=== PATIENT | male | born 1940 | race Caucasian/White ===

== ENCOUNTER 2016-09-07 08:01 | Outpatient (CLI) | payer MEDICARE, OTHER ==
[2016-09-07 08:56] LABS: Anion Gap 12 mmol/L (10-20); BUN (Urea Nitrogen) 13 mg/dL (8.4-25.7); Calc. Creatinine Clearance 0 mL/min (70-130); Carbon Dioxide 27 mmol/L (23-31); Chloride 107 mmol/L (98-107); Estimated GFR-MDRD 68
[2016-09-07 08:57] LABS: ALT (SGPT) 17 U/L (0-55); AST (SGOT) 19 U/L (5-34); Alkaline Phosphatase 49 U/L (40-150); Bilirubin, Total 0.4 mg/dL (0.2-1.2); Calcium 8.9 mg/dL (7.8-10.44); Globulin 2.4 g/dL (2.4-3.5); LDL Cholesterol, Calculated 69 mg/dL; Protein, Total 6.3 g/dL (5.8-8.1)
== END 2016-09-07 08:02 | disposition home or self-care (01) ==
LOC: BURLAB 08:01
PROVIDERS: ATTEND Internal Medicine Cardiovascular Disease
DX: E78.00 Pure hypercholesterolemia, unspecified (principal)
CPT/HCPCS: 36415; 80053; 80061

== ENCOUNTER 2016-10-23 09:51 | Emergency (ER) | payer MEDICARE, OTHER ==
[2016-10-23 10:12] LABS: #Basophils 0.1 thou/uL (0.0-0.2); #Lymphocytes 4.9 thou/uL (1.20-3.40); #Monocytes 1.2 thou/uL (0.11-0.59); #Neutrophils 7.5 thou/uL (1.40-6.50); %Basophils 0.6 % (0.0-1.0); %Eosinophils 0.1 % (0.0-10.0); %Lymphocytes 35.8 % (21.0-51.0); %Neutrophils 54.6 % (42.0-75.0); Hemoglobin 14.8 g/dL (14.0-18.0); Mean Corpuscular HGB CONC 33.4 g/dL (32.0-36.0); Mean Corpuscular Hemoglobin 30.8 pg (27.0-31.0); Mean Corpuscular Volume 92.1 fl (80.0-94.0); Mean Platelet Volume 9.5 fL (7.4-10.4); Platelet Count 278 thou/uL (130-400); RBC Distribution Width 13.2 % (11.5-14.5); Red Blood Cell (RBC) Count 4.81 mill/uL (4.70-6.10); White Blood Cell (WBC) Count 13.7 thou/uL (4.8-10.8)
[2016-10-23 10:25] LABS: ALT (SGPT) 26 U/L (0-55); AST (SGOT) 24 U/L (5-34); Albumin 4.1 g/dL (3.4-4.8); Alkaline Phosphatase 43 U/L (40-150); Anion Gap 11 mmol/L (10-20); BUN (Urea Nitrogen) 18 mg/dL (8.4-25.7); Bilirubin, Total 0.5 mg/dL (0.2-1.2); Calc. Creatinine Clearance 0 mL/min (70-130); Carbon Dioxide 28 mmol/L (23-31); Chloride 104 mmol/L (98-107); Estimated GFR-MDRD 72; Globulin 2.5 g/dL (2.4-3.5); Glucose 89 mg/dL (83-110); Potassium 3.4 mmol/L (3.5-5.1); Protein, Total 6.6 g/dL (5.8-8.1); Sodium 140 mmol/L (136-145)
[2016-10-23 10:28] LABS: CKMB 2.3 ng/mL (0-6.6); Troponin I 0.017 ng/mL (< 0.028)
--- NOTE | 2016-10-23 20:09 | RAD ---
PORTABLE CHEST 10/23/16 An AP portable film at 1004 is compared with the 11/09/15 study. Mild cardiomegaly is about the same. There are no congestive findings or pleural effusions. The lung s seem clear. An AICD remains in place. IMPRESSION: No acute thoracic finding. POS: HOME
== END 2016-10-23 11:48 | disposition short-term general hospital (02) ==
LOC: BURERS 09:51
DX: R07.2 Precordial pain (principal); I48.91 Unspecified atrial fibrillation; E78.5 Hyperlipidemia, unspecified; I10 Essential (primary) hypertension; F32.9 Major depressive disorder, single episode, unspecified; Z87.891 Personal history of nicotine dependence
CPT/HCPCS: 71010; 80053; 82553; 83880; 84484; 85025; 93005

== ENCOUNTER 2017-03-04 07:52 | Outpatient (CLI) | payer MEDICARE, OTHER ==
[2017-03-04 09:01] LABS: ALT (SGPT) 19 U/L (8-55); AST (SGOT) 21 U/L (5-34); Albumin 4.1 g/dL (3.4-4.8); Alkaline Phosphatase 57 U/L (40-150); Anion Gap 14 mmol/L (10-20); BUN (Urea Nitrogen) 12 mg/dL (8.4-25.7); Bilirubin, Total 0.5 mg/dL (0.2-1.2); Calc. Creatinine Clearance 0 mL/min (70-130); Calcium 9.5 mg/dL (7.8-10.44); Carbon Dioxide 29 mmol/L (23-31); Chloride 105 mmol/L (98-107); Cholesterol 136 mg/dl (< 200 Desired); Estimated GFR-MDRD 68; Globulin 2.5 g/dL (2.4-3.5); Glucose 104 mg/dL (83-110); HDL Cholesterol 46 mg/dL (>60 Neg Risk); LDL Cholesterol, Calculated 68 mg/dL; Protein, Total 6.6 g/dL (5.8-8.1); Sodium 144 mmol/L (136-145); Triglycerides 110 mg/dL (Less than 150)
== END 2017-03-04 07:53 | disposition home or self-care (01) ==
LOC: BURLAB 07:52
PROVIDERS: ATTEND Internal Medicine Cardiovascular Disease
DX: E78.00 Pure hypercholesterolemia, unspecified (principal)
CPT/HCPCS: 36415; 80053; 80061

== ENCOUNTER 2017-08-18 09:05 | Emergency (ER) | payer MEDICARE, OTHER ==
[2017-08-18] MEDS ORDERED: AMOXicillin 250 MG CAP ONE (10:09)
--- NOTE | 2017-08-18 13:42 | RAD ---
CHEST 2 VIEWS: Date: 08/18/17 Comparison made with the 10/23/16 study. FINDINGS: An AICD remains in place. Cardiomegaly is no different than before and there is no vascular congestio n, edema, or pleural effusion. The lungs are hyperexpanded. There is no major lobar consolidation present. There may be a little str eaking in the left lung base. The right base is relatively clear. The upper lobes are clear. IMPRESSION: Minimal change since last year. Possibly some minor left basilar streaking. POS: HOME
== END 2017-08-18 10:11 | disposition home or self-care (01) ==
LOC: BURERS 09:05
DX: J06.9 Acute upper respiratory infection, unspecified (principal); I48.91 Unspecified atrial fibrillation; E78.5 Hyperlipidemia, unspecified; I10 Essential (primary) hypertension; F32.9 Major depressive disorder, single episode, unspecified; Z87.891 Personal history of nicotine dependence
CPT/HCPCS: 71046

== ENCOUNTER 2017-12-04 10:19 | Emergency (ER) | payer MEDICARE, OTHER ==
[2017-12-04 10:38] LABS: #Basophils 0.1 thou/uL (0.0-0.2); #Eosinphils 0.1 thou/uL (0.0-0.7); #Lymphocytes 2.5 thou/uL (1.20-3.40); #Monocytes 0.8 thou/uL (0.11-0.59); #Neutrophils 5.4 thou/uL (1.40-6.50); %Basophils 0.8 % (0.0-1.0); %Eosinophils 1.1 % (0.0-10.0); %Lymphocytes 28.5 % (21.0-51.0); %Monocytes 8.6 % (0.0-10.0); %Neutrophils 61.1 % (42.0-75.0); Hemoglobin 14.4 g/dL (14.0-18.0); Mean Corpuscular HGB CONC 34.4 g/dL (32.0-36.0); Mean Corpuscular Volume 87.1 fl (80.0-94.0); Mean Platelet Volume 8.2 fL (7.4-10.4); Platelet Count 276 thou/uL (130-400); RBC Distribution Width 13.3 % (11.5-14.5); Red Blood Cell (RBC) Count 4.79 mill/uL (4.70-6.10); White Blood Cell (WBC) Count 8.8 thou/uL (4.8-10.8)
[2017-12-04 10:46] LABS: INR-International Normal Ratio 1.3; Prothrombin Time 15.9 SEC (12.0-14.7)
[2017-12-04 10:47] LABS: PTT 35.4 SEC (22.9-36.1)
[2017-12-04 10:56] LABS: ALT (SGPT) 17 U/L (8-55); AST (SGOT) 18 U/L (5-34); Albumin 4.1 g/dL (3.4-4.8); Alkaline Phosphatase 53 U/L (40-150); Anion Gap 14 mmol/L (10-20); BUN (Urea Nitrogen) 11 mg/dL (8.4-25.7); Bilirubin, Total 0.5 mg/dL (0.2-1.2); Calc. Creatinine Clearance 0 mL/min (70-130); Calcium 8.9 mg/dL (7.8-10.44); Carbon Dioxide 28 mmol/L (23-31); Chloride 104 mmol/L (98-107); Estimated GFR-MDRD 72; Globulin 2.5 g/dL (2.4-3.5); Glucose 108 mg/dL (83-110); Potassium 3.5 mmol/L (3.5-5.1); Protein, Total 6.6 g/dL (5.8-8.1); Sodium 142 mmol/L (136-145)
[2017-12-04 10:57] LABS: CKMB 1.2 ng/mL (0-6.6); Troponin I Less than 0.010 ng/mL (< 0.028)
--- NOTE | 2017-12-04 12:16 | RAD ---
PORTABLE CHEST: History: Chest pain. Comparison: 10-23-16 FINDINGS: The lungs appear clear of infiltrate. No evidence of vascular congestion or edema. AICD leads are unc hanged. Heart and mediastinum are unremarkable and unchanged. IMPRESSION: No acute finding or interval change noted. POS: [facility]
== END 2017-12-04 11:13 | disposition home or self-care (01) ==
LOC: BURERS 10:19
DX: R07.89 Other chest pain (principal); I48.91 Unspecified atrial fibrillation; I10 Essential (primary) hypertension; F32.9 Major depressive disorder, single episode, unspecified; Z87.891 Personal history of nicotine dependence; Z79.899 Other long term (current) drug therapy; Z79.01 Long term (current) use of anticoagulants; Z79.891 Long term (current) use of opiate analgesic
CPT/HCPCS: 71045; 80053; 82553; 83880; 84484; 85025; 85610; 85730; 93005

== ENCOUNTER 2018-01-29 14:48 | Outpatient (CLI) | payer MEDICARE, OTHER ==
--- NOTE | 2018-01-29 22:59 | ULT ---
LEFT THIGH ULTRASOUND (NONVASCULAR) 01/29/18 Ultrasonographic images were obtained through the area of pain on the left thigh. No abnormalities we re seen. No fluid collections or masses were apparent. IMPRESSION: No pathological finding. POS: HOME
== END 2018-01-29 14:49 | disposition home or self-care (01) ==
LOC: BURULT 14:48
PROVIDERS: ATTEND Family Medicine
DX: M79.662 Pain in left lower leg (principal)
CPT/HCPCS: 76882

== ENCOUNTER 2018-02-24 10:13 | Emergency (ER) | payer MEDICARE, OTHER ==
[2018-02-24 10:50] LABS: #Basophils 0.1 thou/uL (0.0-0.2); #Eosinphils 0.2 thou/uL (0.0-0.7); #Lymphocytes 2.7 thou/uL (1.20-3.40); %Eosinophils 2.3 % (0.0-10.0); %Lymphocytes 27.2 % (21.0-51.0); %Monocytes 9.9 % (0.0-10.0); %Neutrophils 59.6 % (42.0-75.0); Hemoglobin 15.3 g/dL (14.0-18.0); Mean Corpuscular HGB CONC 34.5 g/dL (32.0-36.0); Mean Corpuscular Hemoglobin 28.6 pg (27.0-31.0); Mean Corpuscular Volume 82.8 fL (78.0-98.0); Platelet Count 288 thou/uL (130-400); RBC Distribution Width 12.5 % (11.5-14.5); Red Blood Cell (RBC) Count 5.34 mill/uL (4.70-6.10)
[2018-02-24 11:05] LABS: ALT (SGPT) 16 U/L (8-55); AST (SGOT) 17 U/L (5-34); Albumin 4.4 g/dL (3.4-4.8); Alkaline Phosphatase 56 U/L (40-150); Anion Gap 14 mmol/L (10-20); BUN (Urea Nitrogen) 12 mg/dL (8.4-25.7); Bilirubin, Total 0.5 mg/dL (0.2-1.2); Calc. Creatinine Clearance 0 mL/min (70-130); Calcium 9.7 mg/dL (7.8-10.44); Carbon Dioxide 30 mmol/L (23-31); Chloride 105 mmol/L (98-107); Estimated GFR-MDRD 61; Globulin 2.6 g/dL (2.4-3.5); Glucose 123 mg/dL (83-110); Potassium 3.8 mmol/L (3.5-5.1); Sodium 145 mmol/L (136-145)
[2018-02-24 11:12] LABS: CKMB 1.3 ng/mL (0-6.6); Troponin I 0.015 ng/mL (< 0.028)
--- NOTE | 2018-02-24 20:07 | RAD ---
AP PORTABLE CHEST: 02/24/2018 1031 HOURS COMPARISON: 12/04/2017 FINDINGS: AICD remains in place. Very mild cardiomegaly is present, that is no different than before. There i s no vascular congestion, edema, or large pleural effusions. While the left base is not seen well on this portable study, it appears no different than before. IMPRESSION: No acute findings. POS: HOME
== END 2018-02-24 11:27 | disposition short-term general hospital (02) ==
LOC: BURERS 10:13
DX: I48.91 Unspecified atrial fibrillation (principal); E78.5 Hyperlipidemia, unspecified; I10 Essential (primary) hypertension; F32.9 Major depressive disorder, single episode, unspecified; Z87.891 Personal history of nicotine dependence; Z79.01 Long term (current) use of anticoagulants; Z79.899 Other long term (current) drug therapy
CPT/HCPCS: 36415; 71045; 80053; 82553; 84484; 85025; 93005

== ENCOUNTER 2019-10-03 08:50 | Emergency (ER) | payer MEDICARE, OTHER ==
[2019-10-03 09:14] LABS: #Eosinphils 0.3 thou/uL (0.0-0.7); #Lymphocytes 1.9 thou/uL (1.20-3.40); #Monocytes 0.8 thou/uL (0.11-0.59); %Basophils 0.3 % (0.0-1.0); %Eosinophils 2.8 % (0.0-10.0); %Lymphocytes 21.3 % (21.0-51.0); %Monocytes 9.3 % (0.0-10.0); %Neutrophils 66.3 % (42.0-75.0); Hemoglobin 14.5 g/dL (14.0-18.0); Mean Corpuscular HGB CONC 32.5 g/dL (32.0-36.0); Mean Corpuscular Hemoglobin 30.1 pg (27.0-31.0); Mean Corpuscular Volume 92.6 fL (78.0-98.0); Mean Platelet Volume 9.7 fL (7.4-10.4); Platelet Count 248 thou/uL (130-400); RBC Distribution Width 13.3 % (11.5-14.5); Red Blood Cell (RBC) Count 4.81 mill/uL (4.70-6.10); White Blood Cell (WBC) Count 9.1 thou/uL (4.8-10.8)
[2019-10-03 09:18] LABS: INR-International Normal Ratio 1.1; PTT 29.8 SEC (22.9-36.1); Prothrombin Time 13.8 SEC (12.0-14.7)
[2019-10-03] MEDS ORDERED: Ondansetron PF 4 MG/2 ML Vial ONE ×2 (09:25→09:58)
--- NOTE | 2019-10-03 09:25 | CT ---
CT head noncontrast HISTORY: Headache. Altered mental status. Vision loss. Centered at the left occipital lobe, and intraparenchymal large irregular shaped hyperdense fluid col lection measures up to 4.5 cm x 3.0 cm greatest diameters on the axial images and is favored to be centered at or near the daniels-white junction. There is surrounding vasogenic edema and effacement of t he cerebral sulci. Basilar cisterns are maintained. Ventricles unremarkable without hemorrhage. Septum pellucidum is mid line. IMPRESSION: Large intraparenchymal left occipital hematoma. Cause is not evident. Findings were called to Dr. Calabrese in the emergency department at 0916 hours. Code CR.
[2019-10-03 09:28] LABS: ALT (SGPT) 19 U/L (8-55); AST (SGOT) 17 U/L (5-34); Albumin 4.2 g/dL (3.4-4.8); Alkaline Phosphatase 60 U/L (40-110); Anion Gap 12 mmol/L (10-20); BUN (Urea Nitrogen) 15 mg/dL (8.4-25.7); Bilirubin, Total 0.4 mg/dL (0.2-1.2); Calc. Creatinine Clearance 0 mL/min (70-130); Calcium 9.2 mg/dL (7.8-10.44); Carbon Dioxide 30 mmol/L (23-31); Chloride 104 mmol/L (98-107); Estimated GFR-MDRD 64; Globulin 2.6 g/dL (2.4-3.5); Glucose 113 mg/dL (83-110); Potassium 3.6 mmol/L (3.5-5.1); Protein, Total 6.8 g/dL (5.8-8.1); Sodium 142 mmol/L (136-145)
[2019-10-03] MEDS ORDERED: niCARdipine 25 MG/10 ML VIAL ONE (09:31)
--- NOTE | 2019-10-03 09:31 | RAD ---
Chest one view HISTORY: Altered mental status. COMPARISON: 02/24/2018. FINDINGS: Cardiac silhouette is magnified by projection. Prominent left lateral cardiophrenic fat pad again demonstrated. Mediastinum is midline with a multi lead left subclavian cardiac electronic device. No lobar consolidation or evidence of pneumothorax. Old left posterolateral upper rib fractur es. IMPRESSION: Stable exam.
== END 2019-10-03 10:15 | disposition short-term general hospital (02) ==
LOC: BURERS 08:50
DX: I62.9 Nontraumatic intracranial hemorrhage, unspecified (principal); I48.91 Unspecified atrial fibrillation; E78.5 Hyperlipidemia, unspecified; I10 Essential (primary) hypertension; F32.9 Major depressive disorder, single episode, unspecified; Z87.891 Personal history of nicotine dependence
CPT/HCPCS: 36415; 70450; 71045; 80053; 84484; 85025; 85610; 85730; 96365; 96375; J2405

== ENCOUNTER 2019-10-10 15:52 | Inpatient (IN) | payer MEDICARE, OTHER ==
[2019-10-10] MEDS ORDERED: guaiFENesin ER 600 MG TAB PO PRN (19:53)
[2019-10-10] MEDS ORDERED: Fluticasone Propionate Nasal Spray 16 gm Bottle NASAL PRN (19:53)
[2019-10-10] MEDS ORDERED: Calcium Carbonate 500 MG ChewTAB PO PRN (19:53)
[2019-10-10] MEDS ORDERED: DEXAMETHASONE 2 MG PO SCH (20:00)
[2019-10-10] MEDS ORDERED: Amoxicillin/Potassium Clav 875 MG TAB ONE (21:23)
[2019-10-10] MEDS: Floranex Packet PO SCH (21:45)
[2019-10-10] MEDS: Amoxicillin/Potassium Clav 875 MG TAB PO SCH (21:45)
[2019-10-10] MEDS: hydrALAZINE 25 MG TAB PO SCH (21:45)
[2019-10-10] MEDS: Lisinopril 20 MG TAB PO SCH (21:45)
[2019-10-10] MEDS: Primidone 50 MG TAB PO SCH (21:45)
[2019-10-10] MEDS: Carvedilol 25 MG TAB PO SCH (21:46)
[2019-10-10] MEDS: Melatonin 3 MG TAB PO SCH (21:47)
[2019-10-10] MEDS: Atorvastatin Calcium 10 MG TAB PO SCH (21:47)
[2019-10-10] MEDS: Aspirin Chewable 81 MG TAB PO SCH (21:47)
[2019-10-10] MEDS: ALPRAZolam 0.5 MG TAB PO SCH (21:51)
--- NOTE | 2019-10-11 01:51 | HP ---
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 HISTORY OF PRESENT ILLNESS: Mr. Balderas is an 79-year-old male, who was admitted to [facility] October 02 through October 09 after experiencing significant headache with vision changes and confusion. He was brought through the [facility] where he was evaluated with noncontrast head CT, which was notable for left occipital intraparenchymal hemorrhage with moderate amount of surrounding vasogenic edema. He was transferred for further management. On his admitting exam, he had GCS of 14, was confused and was moving all four extremities without difficulty and following commands appropriately. He had a vision loss in the right eye, but extraocular movements were intact. He had a slight drift in theright lower extremity and was oriented x2 along with dysmetria of the bilateral upper extremities. They did get a CTA of the head due to inability to obtain an MRI because of his existing pacemaker on October 02 that showed no acute vascular abnormalities, mild atherosclerosis, and slight interval enlargement of a large acute left occipital intra-axial hematoma. He had a followup brain CT on October 07, which was done for followup and for altered mental status that shows stable left parietal lobe intraparenchymal hematoma with focal mass effect with 0.5 cm midline shift to the right, but no new hemorrhage. He underwent a modified barium swallow study on October 07 that showed significant premature spill of contrast into the vallecula and piriform sinuses prior to initiation of swallowing mechanism, but no lorelei aspiration or penetration was demonstrated during the exam. His hospital course was just complicated by pneumonia, deemed secondary to aspiration with the last chest x-ray on October 06 showing developing infiltrate in the left lung base and he was treated with Augmentin for this. In addition, he had worsening mental status at the time of the 2nd head CT and so he was started on IV Solu-Medrol which has been tapered to oral dexamethasone with improvement of his mental status since initiated. He was noted to improve as much to be able to answer questions appropriately. He did have a fever of 101.6 late in the p.m. of October 07, but has not had any further. He had a leukocytosis, but that has suspected to persist secondary to the corticosteroids. He has transferred here this afternoon for further intermediate and rehab. Per his progress notes today from hospitalist, his examination showed him to have a left hemianopsia and 3-4/5 weakness. He was awake and alert at that time. At present, the patient voices no complaints. PAST MEDICAL HISTORY: 1. Hypertension. 2. Hyperlipidemia. 3. Atrial fibrillation. 4. Cardiomyopathy. PAST SURGICAL HISTORY: 1. Pacemaker defibrillator. 2. Vasectomy. 3. Cardiac cath x2. SOCIAL HISTORY: The patient lives at home, he states alone. His apparently is in a long-term care facility here. He has a history of drinking alcohol daily, but less than five drinks. Denies illicit drug use. Former tobacco user. ALLERGIES: MULTAQ/DRONEDARONE. MEDICATIONS: 1. Zestril 40 mg p.o. at bedtime. 2. Lactobacillus 1 p.o. before each meals and at bedtime. 3. Lasix 40 mg p.o. daily. 4. Finasteride 5 mg p.o. daily. 5. Docusate sodium 100 mg p.o. q.a.m. 6. Dexamethasone 2 mg p.o. as directed, taper. 7. Carvedilol 50 mg p.o. b.i.d. 8. Tums 1000 mg p.o. q.4 hours p.r.n. 9. Aspirin 81 mg p.o. q.p.m. 10. Augmentin 875/125 one p.o. b.i.d. 11. Xanax 0.25 mg p.o. at bedtime. 12. Venlafaxine HCL ER 1 p.o. daily at noon that is 150 mg. 13. Tamsulosin 0.4 mg p.o. daily. 14. Simvastatin 40 mg p.o. at bedtime. 15. Primidone 50 mg p.o. q.a.m. and 100 mg p.o. at bedtime. 16. Clear Eyes Natural Tears drop in the eyes b.i.d. p.r.n. 17. Multivitamin one p.o. daily. 18. Melatonin 5 mg p.o. at bedtime. 19. Hydralazine 50 mg p.o. t.i.d. 20. Fluticasone nasal one spray in each naris daily p.r.n. 21. Tylenol Extra Strength 500 mg p.o. q.6 hours p.r.n. 22. Mucinex 600 mg p.o. b.i.d. p.r.n. 23. Amlodipine 10 mg p.o. daily. REVIEW OF SYSTEMS: GENERAL: The patient had last fever on October 07. He has focal weakness and deconditioning. He denies chills. HEENT: Vision disturbance. Denies hearing problems. Wears corrective lenses. No sore throat. No rhinorrhea. CARDIOVASCULAR: Denies chest pain, palpitations. RESPIRATORY: Denies shortness of breath, cough, or sputum production. GI: Denies diarrhea, constipation, or abdominal pain. GENITOURINARY: Denies dysuria or frequency. He is on medications for BPH, but denies incomplete emptying symptoms. HEMATOLOGIC: Denies bleeding. LYMPHATIC: No lymphadenopathy or swelling reported. NEUROLOGIC: The patient has history of confusion previously, able to answer questions with a left hemianopsia and 3-4/5 weakness. PHYSICAL EXAMINATION: VITAL SIGNS: Temperature 98.2, pulse 78, respirations 18, 94% O2 saturation on room air, and blood pressure 137/75. GENERAL: Well-developed, well-nourished male, in no acute distress. Alert and oriented to person, but not place or time. He is unable to name what type of facility this is or where it is. He thinks the current president might be [place], but knows he is wrong. He says it is 1979. HEENT: Normocephalic, atraumatic. His right eye is slightly deviated to the left. He is unable to follow extraocular movement commands. Nares are patent without discharge. Tongue protrudes in the midline. NECK: Supple without lymphadenopathy, thyromegaly, JVD, or bruit. HEART: Regular rate and rhythm. Normal S1, S2. No murmurs, clicks, rubs, or gallops. LUNGS: Clear to auscultation bilaterally. No crackles or wheezes. ABDOMEN: Positive bowel sounds x4. Soft, nontender, and nondistended. No masses, guarding, or rebound tenderness. EXTREMITIES: No cyanosis, clubbing, or edema. NEUROLOGIC: Left hemianopsia with at times a low amplitude tremor with intention of bilateral upper extremities. Upper extremity weakness on the right greater than left. Lower extremity weakness was difficult to evaluate secondary to inability to follow movement commands. He seems to have a little right-sided neglect. He also has perseveration on current tasks. LABORATORY DATA: White count 15.3, hemoglobin 13.2, hematocrit 41.1, platelets 241. PT 13.7, INR 1.1. APTT 22.3 on October 02. Sodium 143, potassium 3.6, chloride 106, bicarb 23, BUN 48, creatinine 1.13, glucose 174, calcium 9.6. Blood culture, no growth from October 04 x2 and urine culture, no growth for 48 hours from October 06. IMAGING: Please see HPI. ASSESSMENT AND PLAN: 1. Intracerebral hemorrhage, nontraumatic, his is acute left occipital intraparenchymal hemorrhage of unclear etiology. The patient will be admitted for skilled rehabilitation physical and occupational therapy and speech therapy. The goal ultimately to return home with home health. 2. Hypertension. The patient initially had hypertensive emergency which was acutely managed and currently stable on his present regimen. 3. Cerebral edema. The patient will continue a dexamethasone taper. 4. Aspiration pneumonia. The patient is on Augmentin and aspiration precautions. 5. Atrial fibrillation. The patient is currently rate controlled and not on anticoagulation secondary to the hemorrhage. 6. Cardiomyopathy. The patient will be continued on his diuretic regimen. 7. Prophylaxis. We will add famotidine and place SCDs. CODE STATUS: The patient is a do not attempt resuscitation. Job ID: [id number]
[2019-10-11] MEDS ORDERED: Amoxicillin/Potassium Clav 875 MG TAB ONE ×2 (08:32→21:04)
[2019-10-11] MEDS: Floranex Packet PO SCH ×4 (08:54→21:21)
[2019-10-11] MEDS: Furosemide 40 MG TAB PO SCH (08:54)
[2019-10-11] MEDS: Tamsulosin HCl 0.4 MG CAP PO SCH (08:54)
[2019-10-11] MEDS: Dexamethasone 4 MG TAB PO SCH (08:54)
[2019-10-11] MEDS: Amoxicillin/Potassium Clav 875 MG TAB PO SCH ×2 (08:54→21:20)
[2019-10-11] MEDS: hydrALAZINE 25 MG TAB PO SCH ×3 (08:55→21:21)
[2019-10-11] MEDS: Primidone 50 MG TAB PO SCH ×2 (08:55→21:20)
[2019-10-11] MEDS: Venlafaxine HCl XR 75 MG CAP PO SCH (08:55)
[2019-10-11] MEDS: Multivitamin W/ Minerals 1 TAB PO SCH (08:55)
[2019-10-11] MEDS: Carvedilol 25 MG TAB PO SCH ×2 (08:56→21:21)
[2019-10-11] MEDS: Amlodipine 10 MG TAB PO SCH (08:56)
[2019-10-11] MEDS: Docusate 100 MG CAP PO SCH (08:57)
[2019-10-11] MEDS: Finasteride 5 MG TAB PO SCH (08:57)
[2019-10-11] MEDS: Atorvastatin Calcium 10 MG TAB PO SCH (21:21)
[2019-10-11] MEDS: Melatonin 3 MG TAB PO SCH (21:21)
[2019-10-11] MEDS: Lisinopril 20 MG TAB PO SCH (21:22)
[2019-10-11] MEDS: Aspirin Chewable 81 MG TAB PO SCH (21:22)
[2019-10-11] MEDS: ALPRAZolam 0.5 MG TAB PO SCH (21:22)
[2019-10-12] MEDS ORDERED: Amoxicillin/Potassium Clav 875 MG TAB ONE ×2 (07:56→21:25)
[2019-10-12] MEDS: Venlafaxine HCl XR 75 MG CAP PO SCH (08:32)
[2019-10-12] MEDS: Floranex Packet PO SCH ×4 (08:32→21:31)
[2019-10-12] MEDS: Amlodipine 10 MG TAB PO SCH (08:33)
[2019-10-12] MEDS: Carvedilol 25 MG TAB PO SCH ×2 (08:33→21:33)
[2019-10-12] MEDS: Primidone 50 MG TAB PO SCH ×2 (08:33→21:31)
[2019-10-12] MEDS: Tamsulosin HCl 0.4 MG CAP PO SCH (08:33)
[2019-10-12] MEDS: Amoxicillin/Potassium Clav 875 MG TAB PO SCH ×2 (08:33→21:31)
[2019-10-12] MEDS: Furosemide 40 MG TAB PO SCH (08:33)
[2019-10-12] MEDS: hydrALAZINE 25 MG TAB PO SCH ×3 (08:34→21:33)
[2019-10-12] MEDS: Docusate 100 MG CAP PO SCH (08:34)
[2019-10-12] MEDS: Finasteride 5 MG TAB PO SCH (08:34)
[2019-10-12] MEDS: Dexamethasone 4 MG TAB PO SCH (08:34)
[2019-10-12] MEDS: Multivitamin W/ Minerals 1 TAB PO SCH (08:34)
[2019-10-12] MEDS: Atorvastatin Calcium 10 MG TAB PO SCH (21:31)
[2019-10-12] MEDS: Melatonin 3 MG TAB PO SCH (21:32)
[2019-10-12] MEDS: Lisinopril 20 MG TAB PO SCH (21:32)
[2019-10-12] MEDS: Aspirin Chewable 81 MG TAB PO SCH (21:32)
[2019-10-12] MEDS: ALPRAZolam 0.5 MG TAB PO SCH (21:33)
[2019-10-13] MEDS ORDERED: Amoxicillin/Potassium Clav 875 MG TAB ONE ×2 (08:15→22:11)
[2019-10-13] MEDS: Floranex Packet PO SCH ×4 (08:38→22:23)
[2019-10-13] MEDS: Multivitamin W/ Minerals 1 TAB PO SCH (08:39)
[2019-10-13] MEDS: Venlafaxine HCl XR 75 MG CAP PO SCH (08:39)
[2019-10-13] MEDS: Finasteride 5 MG TAB PO SCH (08:39)
[2019-10-13] MEDS: Primidone 50 MG TAB PO SCH ×2 (08:39→22:21)
[2019-10-13] MEDS: Furosemide 40 MG TAB PO SCH (08:39)
[2019-10-13] MEDS: Dexamethasone 4 MG TAB PO SCH (08:40)
[2019-10-13] MEDS: Amlodipine 10 MG TAB PO SCH (08:40)
[2019-10-13] MEDS: hydrALAZINE 25 MG TAB PO SCH ×3 (08:42→22:21)
[2019-10-13] MEDS: Tamsulosin HCl 0.4 MG CAP PO SCH (08:43)
[2019-10-13] MEDS: Docusate 100 MG CAP PO SCH (08:43)
[2019-10-13] MEDS: Amoxicillin/Potassium Clav 875 MG TAB PO SCH ×2 (08:43→22:23)
[2019-10-13] MEDS: Carvedilol 25 MG TAB PO SCH ×2 (08:43→22:22)
[2019-10-13] MEDS: Lisinopril 20 MG TAB PO SCH (22:20)
[2019-10-13] MEDS: Atorvastatin Calcium 10 MG TAB PO SCH (22:21)
[2019-10-13] MEDS: Acetaminophen 500 MG TAB PO PRN (22:22)
[2019-10-13] MEDS: Aspirin Chewable 81 MG TAB PO SCH (22:23)
[2019-10-13] MEDS: ALPRAZolam 0.5 MG TAB PO SCH (22:23)
[2019-10-13] MEDS: Melatonin 3 MG TAB PO SCH (22:23)
[2019-10-14] MEDS ORDERED: Amoxicillin/Potassium Clav 875 MG TAB ONE ×2 (07:29→20:49)
[2019-10-14] MEDS: Floranex Packet PO SCH ×4 (08:34→21:17)
[2019-10-14] MEDS: Venlafaxine HCl XR 75 MG CAP PO SCH (08:34)
[2019-10-14] MEDS: hydrALAZINE 25 MG TAB PO SCH ×3 (08:35→21:15)
[2019-10-14] MEDS: Multivitamin W/ Minerals 1 TAB PO SCH (08:35)
[2019-10-14] MEDS: Carvedilol 25 MG TAB PO SCH ×2 (08:35→21:15)
[2019-10-14] MEDS: Dexamethasone 4 MG TAB PO SCH (08:36)
[2019-10-14] MEDS: Furosemide 40 MG TAB PO SCH (08:37)
[2019-10-14] MEDS: Amlodipine 10 MG TAB PO SCH (08:37)
[2019-10-14] MEDS: Finasteride 5 MG TAB PO SCH (08:37)
[2019-10-14] MEDS: Amoxicillin/Potassium Clav 875 MG TAB PO SCH ×2 (08:37→21:15)
[2019-10-14] MEDS: Docusate 100 MG CAP PO SCH (08:38)
[2019-10-14] MEDS: Primidone 50 MG TAB PO SCH ×2 (08:38→21:14)
[2019-10-14] MEDS: Tamsulosin HCl 0.4 MG CAP PO SCH (08:38)
[2019-10-14] MEDS: Atorvastatin Calcium 10 MG TAB PO SCH (21:13)
[2019-10-14] MEDS: Melatonin 3 MG TAB PO SCH (21:14)
[2019-10-14] MEDS: ALPRAZolam 0.5 MG TAB PO SCH (21:16)
[2019-10-14] MEDS: Lisinopril 20 MG TAB PO SCH (21:16)
[2019-10-14] MEDS: Aspirin Chewable 81 MG TAB PO SCH (21:16)
[2019-10-15] MEDS: Venlafaxine HCl XR 75 MG CAP PO SCH (10:04)
[2019-10-15] MEDS: Primidone 50 MG TAB PO SCH ×2 (10:05→21:11)
[2019-10-15] MEDS: Dexamethasone 4 MG TAB PO SCH (10:06)
[2019-10-15] MEDS: Docusate 100 MG CAP PO SCH (10:07)
[2019-10-15] MEDS: hydrALAZINE 25 MG TAB PO SCH ×3 (10:07→21:12)
[2019-10-15] MEDS: Amlodipine 10 MG TAB PO SCH (10:07)
[2019-10-15] MEDS: Carvedilol 25 MG TAB PO SCH ×2 (10:07→21:11)
[2019-10-15] MEDS: Furosemide 40 MG TAB PO SCH (10:08)
[2019-10-15] MEDS: Finasteride 5 MG TAB PO SCH (10:08)
[2019-10-15] MEDS: Tamsulosin HCl 0.4 MG CAP PO SCH (10:08)
[2019-10-15] MEDS: Multivitamin W/ Minerals 1 TAB PO SCH (10:08)
[2019-10-15] MEDS: Floranex Packet PO SCH ×4 (10:08→21:12)
[2019-10-15] MEDS ORDERED: Amoxicillin/Potassium Clav 875 MG TAB ONE (10:13)
[2019-10-15] MEDS: Amoxicillin/Potassium Clav 875 MG TAB PO SCH ×2 (10:14→21:13)
[2019-10-15] MEDS: ALPRAZolam 0.5 MG TAB PO SCH (21:06)
[2019-10-15] MEDS: Aspirin Chewable 81 MG TAB PO SCH (21:08)
[2019-10-15] MEDS: Lisinopril 20 MG TAB PO SCH (21:08)
[2019-10-15] MEDS: Melatonin 3 MG TAB PO SCH (21:11)
[2019-10-15] MEDS: Atorvastatin Calcium 10 MG TAB PO SCH (21:12)
[2019-10-16] MEDS: Amoxicillin/Potassium Clav 875 MG TAB PO SCH ×2 (09:20→20:46)
[2019-10-16] MEDS: Tamsulosin HCl 0.4 MG CAP PO SCH (09:20)
[2019-10-16] MEDS: Floranex Packet PO SCH ×4 (09:20→20:47)
[2019-10-16] MEDS: hydrALAZINE 25 MG TAB PO SCH ×3 (09:20→20:47)
[2019-10-16] MEDS: Venlafaxine HCl XR 75 MG CAP PO SCH (09:20)
[2019-10-16] MEDS: Carvedilol 25 MG TAB PO SCH ×2 (09:20→20:48)
[2019-10-16] MEDS: Amlodipine 10 MG TAB PO SCH (09:20)
[2019-10-16] MEDS: Dexamethasone 4 MG TAB PO SCH (09:20)
[2019-10-16] MEDS: Finasteride 5 MG TAB PO SCH (09:20)
[2019-10-16] MEDS: Furosemide 40 MG TAB PO SCH (09:20)
[2019-10-16] MEDS: Multivitamin W/ Minerals 1 TAB PO SCH (09:20)
[2019-10-16] MEDS: Docusate 100 MG CAP PO SCH (09:20)
[2019-10-16] MEDS: Primidone 50 MG TAB PO SCH ×2 (09:20→20:49)
[2019-10-16] MEDS: Atorvastatin Calcium 10 MG TAB PO SCH (20:47)
[2019-10-16] MEDS: Lisinopril 20 MG TAB PO SCH (20:48)
[2019-10-16] MEDS: Aspirin Chewable 81 MG TAB PO SCH (20:49)
[2019-10-16] MEDS: Melatonin 3 MG TAB PO SCH (20:49)
[2019-10-16] MEDS: ALPRAZolam 0.5 MG TAB PO SCH (20:53)
[2019-10-17] MEDS: Carvedilol 25 MG TAB PO SCH ×2 (09:43→21:37)
[2019-10-17] MEDS: Venlafaxine HCl XR 75 MG CAP PO SCH (09:43)
[2019-10-17] MEDS: Amlodipine 10 MG TAB PO SCH (09:44)
[2019-10-17] MEDS: Multivitamin W/ Minerals 1 TAB PO SCH (09:44)
[2019-10-17] MEDS: Docusate 100 MG CAP PO SCH (09:44)
[2019-10-17] MEDS: hydrALAZINE 25 MG TAB PO SCH ×3 (09:44→21:37)
[2019-10-17] MEDS: Primidone 50 MG TAB PO SCH ×2 (09:45→21:38)
[2019-10-17] MEDS: Floranex Packet PO SCH ×4 (09:45→21:34)
[2019-10-17] MEDS: Tamsulosin HCl 0.4 MG CAP PO SCH (09:45)
[2019-10-17] MEDS: Furosemide 40 MG TAB PO SCH (09:45)
[2019-10-17] MEDS: Dexamethasone 4 MG TAB PO SCH (09:45)
[2019-10-17] MEDS: Amoxicillin/Potassium Clav 875 MG TAB PO SCH ×2 (09:46→21:40)
[2019-10-17] MEDS: Finasteride 5 MG TAB PO SCH (09:46)
[2019-10-17] MEDS ORDERED: Polyethylene Glycol 3350 17 GM Packet PO SCH (11:00)
[2019-10-17] MEDS: Acetaminophen 500 MG TAB PO PRN (17:14)
[2019-10-17] MEDS: Aspirin Chewable 81 MG TAB PO SCH (21:37)
[2019-10-17] MEDS: Atorvastatin Calcium 10 MG TAB PO SCH (21:37)
[2019-10-17] MEDS: Lisinopril 20 MG TAB PO SCH (21:38)
[2019-10-17] MEDS: Melatonin 3 MG TAB PO SCH (21:38)
[2019-10-17] MEDS: ALPRAZolam 0.5 MG TAB PO SCH (21:40)
[2019-10-18] MEDS: Polyethylene Glycol 3350 17 GM Packet PO SCH (09:13)
[2019-10-18] MEDS: Carvedilol 25 MG TAB PO SCH ×2 (09:14→21:39)
[2019-10-18] MEDS: Venlafaxine HCl XR 75 MG CAP PO SCH (09:15)
[2019-10-18] MEDS: Multivitamin W/ Minerals 1 TAB PO SCH (09:15)
[2019-10-18] MEDS: Tamsulosin HCl 0.4 MG CAP PO SCH (09:15)
[2019-10-18] MEDS: Floranex Packet PO SCH ×4 (09:15→21:41)
[2019-10-18] MEDS: Amlodipine 10 MG TAB PO SCH (09:16)
[2019-10-18] MEDS: hydrALAZINE 25 MG TAB PO SCH ×3 (09:16→21:39)
[2019-10-18] MEDS: Furosemide 40 MG TAB PO SCH (09:16)
[2019-10-18] MEDS: Dexamethasone 4 MG TAB PO SCH (09:16)
[2019-10-18] MEDS: Primidone 50 MG TAB PO SCH ×2 (09:16→21:37)
[2019-10-18] MEDS: Amoxicillin/Potassium Clav 875 MG TAB PO SCH ×2 (09:17→21:34)
[2019-10-18] MEDS: Docusate 100 MG CAP PO SCH (09:17)
[2019-10-18] MEDS: Finasteride 5 MG TAB PO SCH (09:17)
[2019-10-18] MEDS: Lisinopril 20 MG TAB PO SCH (21:38)
[2019-10-18] MEDS: Melatonin 3 MG TAB PO SCH (21:38)
[2019-10-18] MEDS: Aspirin Chewable 81 MG TAB PO SCH (21:39)
[2019-10-18] MEDS: Atorvastatin Calcium 10 MG TAB PO SCH (21:39)
[2019-10-18] MEDS: ALPRAZolam 0.5 MG TAB PO SCH (21:41)
[2019-10-19] MEDS: Polyethylene Glycol 3350 17 GM Packet PO SCH (08:37)
[2019-10-19] MEDS: Carvedilol 25 MG TAB PO SCH ×2 (08:38→20:22)
[2019-10-19] MEDS: Finasteride 5 MG TAB PO SCH (08:38)
[2019-10-19] MEDS: Dexamethasone 4 MG TAB PO SCH (08:38)
[2019-10-19] MEDS: Tamsulosin HCl 0.4 MG CAP PO SCH (08:38)
[2019-10-19] MEDS: Venlafaxine HCl XR 75 MG CAP PO SCH (08:38)
[2019-10-19] MEDS: Floranex Packet PO SCH ×4 (08:38→20:29)
[2019-10-19] MEDS: hydrALAZINE 25 MG TAB PO SCH ×3 (08:39→20:30)
[2019-10-19] MEDS: Docusate 100 MG CAP PO SCH (08:39)
[2019-10-19] MEDS: Primidone 50 MG TAB PO SCH ×2 (08:39→20:24)
[2019-10-19] MEDS: Amlodipine 10 MG TAB PO SCH (08:39)
[2019-10-19] MEDS: Furosemide 40 MG TAB PO SCH (08:39)
[2019-10-19] MEDS: Multivitamin W/ Minerals 1 TAB PO SCH (08:39)
[2019-10-19] MEDS: Amoxicillin/Potassium Clav 875 MG TAB PO SCH ×2 (08:40→20:24)
[2019-10-19] MEDS: ALPRAZolam 0.5 MG TAB PO SCH (20:20)
[2019-10-19] MEDS: Atorvastatin Calcium 10 MG TAB PO SCH (20:21)
[2019-10-19] MEDS: Lisinopril 20 MG TAB PO SCH (20:22)
[2019-10-19] MEDS: Aspirin Chewable 81 MG TAB PO SCH (20:22)
[2019-10-19] MEDS: Melatonin 3 MG TAB PO SCH (20:23)
[2019-10-20] MEDS: Polyethylene Glycol 3350 17 GM Packet PO SCH (10:00)
[2019-10-20] MEDS: Floranex Packet PO SCH ×4 (10:00→20:42)
[2019-10-20] MEDS: Amlodipine 10 MG TAB PO SCH (10:00)
[2019-10-20] MEDS: Venlafaxine HCl XR 75 MG CAP PO SCH (10:01)
[2019-10-20] MEDS: Tamsulosin HCl 0.4 MG CAP PO SCH (10:01)
[2019-10-20] MEDS: Multivitamin W/ Minerals 1 TAB PO SCH (10:01)
[2019-10-20] MEDS: Carvedilol 25 MG TAB PO SCH ×2 (10:02→20:44)
[2019-10-20] MEDS: Furosemide 40 MG TAB PO SCH (10:02)
[2019-10-20] MEDS: Primidone 50 MG TAB PO SCH ×2 (10:02→20:43)
[2019-10-20] MEDS: Docusate 100 MG CAP PO SCH (10:02)
[2019-10-20] MEDS: hydrALAZINE 25 MG TAB PO SCH ×3 (10:03→20:43)
[2019-10-20] MEDS: Finasteride 5 MG TAB PO SCH (10:04)
[2019-10-20] MEDS: Amoxicillin/Potassium Clav 875 MG TAB PO SCH (10:05)
[2019-10-20] MEDS: Dexamethasone 4 MG TAB PO SCH (10:05)
[2019-10-20] MEDS: Melatonin 3 MG TAB PO SCH (20:43)
[2019-10-20] MEDS: Lisinopril 20 MG TAB PO SCH (20:43)
[2019-10-20] MEDS: Aspirin Chewable 81 MG TAB PO SCH (20:44)
[2019-10-20] MEDS: Atorvastatin Calcium 10 MG TAB PO SCH (20:44)
[2019-10-20] MEDS: ALPRAZolam 0.5 MG TAB PO SCH (20:45)
[2019-10-21] MEDS: Finasteride 5 MG TAB PO SCH (09:21)
[2019-10-21] MEDS: Docusate 100 MG CAP PO SCH (09:21)
[2019-10-21] MEDS: Furosemide 40 MG TAB PO SCH (09:25)
[2019-10-21] MEDS: Multivitamin W/ Minerals 1 TAB PO SCH (09:25)
[2019-10-21] MEDS: Tamsulosin HCl 0.4 MG CAP PO SCH (09:26)
[2019-10-21] MEDS: Primidone 50 MG TAB PO SCH ×2 (09:26→20:41)
[2019-10-21] MEDS: Venlafaxine HCl XR 75 MG CAP PO SCH (09:26)
[2019-10-21] MEDS: Carvedilol 25 MG TAB PO SCH ×2 (09:26→20:42)
[2019-10-21] MEDS: Floranex Packet PO SCH ×4 (09:27→20:41)
[2019-10-21] MEDS: Polyethylene Glycol 3350 17 GM Packet PO SCH (09:27)
[2019-10-21] MEDS: Dexamethasone 4 MG TAB PO SCH (09:28)
[2019-10-21] MEDS: hydrALAZINE 25 MG TAB PO SCH ×3 (09:31→20:41)
[2019-10-21] MEDS: Amlodipine 10 MG TAB PO SCH (09:32)
[2019-10-21] MEDS: Atorvastatin Calcium 10 MG TAB PO SCH (20:41)
[2019-10-21] MEDS: Aspirin Chewable 81 MG TAB PO SCH (20:42)
[2019-10-21] MEDS: Melatonin 3 MG TAB PO SCH (20:42)
[2019-10-21] MEDS: Lisinopril 20 MG TAB PO SCH (20:44)
[2019-10-21] MEDS: ALPRAZolam 0.5 MG TAB PO SCH (20:44)
[2019-10-22] MEDS: Dexamethasone 4 MG TAB PO SCH (08:36)
[2019-10-22] MEDS: Tamsulosin HCl 0.4 MG CAP PO SCH (08:37)
[2019-10-22] MEDS: Carvedilol 25 MG TAB PO SCH ×2 (08:37→20:58)
[2019-10-22] MEDS: Furosemide 40 MG TAB PO SCH (08:37)
[2019-10-22] MEDS: Venlafaxine HCl XR 75 MG CAP PO SCH (08:38)
[2019-10-22] MEDS: Multivitamin W/ Minerals 1 TAB PO SCH (08:38)
[2019-10-22] MEDS: Floranex Packet PO SCH ×4 (08:38→21:00)
[2019-10-22] MEDS: Docusate 100 MG CAP PO SCH (08:38)
[2019-10-22] MEDS: Finasteride 5 MG TAB PO SCH (08:38)
[2019-10-22] MEDS: Polyethylene Glycol 3350 17 GM Packet PO SCH (08:38)
[2019-10-22] MEDS: hydrALAZINE 25 MG TAB PO SCH ×3 (08:43→20:58)
[2019-10-22] MEDS: Amlodipine 10 MG TAB PO SCH (08:44)
[2019-10-22] MEDS: Primidone 50 MG TAB PO SCH ×2 (08:50→20:58)
[2019-10-22] MEDS: Atorvastatin Calcium 10 MG TAB PO SCH (20:57)
[2019-10-22] MEDS: Melatonin 3 MG TAB PO SCH (20:58)
[2019-10-22] MEDS: Lisinopril 20 MG TAB PO SCH (20:59)
[2019-10-22] MEDS: ALPRAZolam 0.5 MG TAB PO SCH (21:00)
[2019-10-22] MEDS: Aspirin Chewable 81 MG TAB PO SCH (21:00)
[2019-10-23] MEDS: Floranex Packet PO SCH ×4 (09:10→20:18)
[2019-10-23] MEDS: Finasteride 5 MG TAB PO SCH (09:11)
[2019-10-23] MEDS: Polyethylene Glycol 3350 17 GM Packet PO SCH (09:11)
[2019-10-23] MEDS: Multivitamin W/ Minerals 1 TAB PO SCH (09:11)
[2019-10-23] MEDS: Docusate 100 MG CAP PO SCH (09:11)
[2019-10-23] MEDS: hydrALAZINE 25 MG TAB PO SCH ×3 (09:11→20:21)
[2019-10-23] MEDS: Amlodipine 10 MG TAB PO SCH (09:12)
[2019-10-23] MEDS: Venlafaxine HCl XR 75 MG CAP PO SCH (09:12)
[2019-10-23] MEDS: Tamsulosin HCl 0.4 MG CAP PO SCH (09:12)
[2019-10-23] MEDS: Furosemide 40 MG TAB PO SCH (09:12)
[2019-10-23] MEDS: Carvedilol 25 MG TAB PO SCH ×2 (09:12→20:20)
[2019-10-23] MEDS: Primidone 50 MG TAB PO SCH ×2 (09:13→20:19)
[2019-10-23] MEDS: Acetaminophen 500 MG TAB PO PRN (20:18)
[2019-10-23] MEDS: Atorvastatin Calcium 10 MG TAB PO SCH (20:18)
[2019-10-23] MEDS: Melatonin 3 MG TAB PO SCH (20:18)
[2019-10-23] MEDS: Aspirin Chewable 81 MG TAB PO SCH (20:19)
[2019-10-23] MEDS: ALPRAZolam 0.5 MG TAB PO SCH (20:21)
[2019-10-23] MEDS: Lisinopril 20 MG TAB PO SCH (20:22)
[2019-10-24] MEDS: Acetaminophen 500 MG TAB PO PRN ×3 (04:53→17:19)
[2019-10-24] MEDS: Floranex Packet PO SCH ×2 (08:28→11:48)
[2019-10-24] MEDS: hydrALAZINE 25 MG TAB PO SCH ×3 (08:32→21:36)
[2019-10-24] MEDS: Primidone 50 MG TAB PO SCH ×2 (08:33→21:36)
[2019-10-24] MEDS: Tamsulosin HCl 0.4 MG CAP PO SCH (08:33)
[2019-10-24] MEDS: Polyethylene Glycol 3350 17 GM Packet PO SCH (08:34)
[2019-10-24] MEDS: Finasteride 5 MG TAB PO SCH (08:36)
[2019-10-24] MEDS: Carvedilol 25 MG TAB PO SCH ×2 (08:36→21:37)
[2019-10-24] MEDS: Amlodipine 10 MG TAB PO SCH (08:36)
[2019-10-24] MEDS: Docusate 100 MG CAP PO SCH (08:36)
[2019-10-24] MEDS: Multivitamin W/ Minerals 1 TAB PO SCH (08:36)
[2019-10-24] MEDS: Venlafaxine HCl XR 75 MG CAP PO SCH (08:36)
[2019-10-24] MEDS: Furosemide 40 MG TAB PO SCH (08:36)
[2019-10-24] MEDS: Melatonin 3 MG TAB PO SCH (21:36)
[2019-10-24] MEDS: Lisinopril 20 MG TAB PO SCH (21:37)
[2019-10-24] MEDS: ALPRAZolam 0.5 MG TAB PO SCH (21:37)
[2019-10-24] MEDS: Atorvastatin Calcium 10 MG TAB PO SCH (21:37)
[2019-10-24] MEDS: Aspirin Chewable 81 MG TAB PO SCH (21:37)
[2019-10-25] MEDS: Acetaminophen 500 MG TAB PO PRN ×3 (05:34→20:11)
[2019-10-25] MEDS: Polyethylene Glycol 3350 17 GM Packet PO SCH (09:02)
[2019-10-25] MEDS: Amlodipine 10 MG TAB PO SCH (09:06)
[2019-10-25] MEDS: Venlafaxine HCl XR 75 MG CAP PO SCH (09:07)
[2019-10-25] MEDS: Multivitamin W/ Minerals 1 TAB PO SCH (09:07)
[2019-10-25] MEDS: hydrALAZINE 25 MG TAB PO SCH ×4 (09:07→20:09)
[2019-10-25] MEDS: Finasteride 5 MG TAB PO SCH (09:08)
[2019-10-25] MEDS: Furosemide 40 MG TAB PO SCH (09:08)
[2019-10-25] MEDS: Docusate 100 MG CAP PO SCH (09:08)
[2019-10-25] MEDS: Tamsulosin HCl 0.4 MG CAP PO SCH (09:08)
[2019-10-25] MEDS: Primidone 50 MG TAB PO SCH ×2 (09:09→20:11)
[2019-10-25] MEDS: Carvedilol 25 MG TAB PO SCH ×2 (09:09→20:10)
[2019-10-25] MEDS: ALPRAZolam 0.5 MG TAB PO SCH (20:09)
[2019-10-25] MEDS: Melatonin 3 MG TAB PO SCH (20:10)
[2019-10-25] MEDS: Lisinopril 20 MG TAB PO SCH (20:10)
[2019-10-25] MEDS: Atorvastatin Calcium 10 MG TAB PO SCH (20:10)
[2019-10-25] MEDS: Aspirin Chewable 81 MG TAB PO SCH (20:11)
[2019-10-26] MEDS: Multivitamin W/ Minerals 1 TAB PO SCH (08:29)
[2019-10-26] MEDS: Polyethylene Glycol 3350 17 GM Packet PO SCH (08:29)
[2019-10-26] MEDS: Primidone 50 MG TAB PO SCH ×2 (08:29→21:38)
[2019-10-26] MEDS: Furosemide 40 MG TAB PO SCH (08:29)
[2019-10-26] MEDS: Tamsulosin HCl 0.4 MG CAP PO SCH (08:29)
[2019-10-26] MEDS: Venlafaxine HCl XR 75 MG CAP PO SCH (08:29)
[2019-10-26] MEDS: hydrALAZINE 25 MG TAB PO SCH ×3 (08:30→21:39)
[2019-10-26] MEDS: Docusate 100 MG CAP PO SCH (08:30)
[2019-10-26] MEDS: Carvedilol 25 MG TAB PO SCH ×2 (08:30→21:39)
[2019-10-26] MEDS: Amlodipine 10 MG TAB PO SCH (08:30)
[2019-10-26] MEDS: Finasteride 5 MG TAB PO SCH (08:31)
[2019-10-26] MEDS: Acetaminophen 500 MG TAB PO PRN (11:16)
[2019-10-26 17:50] LABS: Bilirubin Negative (Negative); Blood, Urine Negative (Negative); Clarity Slightly Cloudy (Clear); Glucose, Urine (Dipstick) Negative (Negative); Leukocyte Negative (Negative); Nitrite Negative (Negative); Protein, Urine (Dipstick) Trace mg/dL (Neg-Trace)
[2019-10-26 17:51] LABS: #Basophils 0.1 thou/uL (0.0-0.2); #Eosinphils 0.3 thou/uL (0.0-0.7); #Monocytes 1.3 thou/uL (0.11-0.59); %Basophils 0.5 % (0.0-1.0); %Eosinophils 2.8 % (0.0-10.0); %Lymphocytes 18.6 % (21.0-51.0); %Monocytes 12.1 % (0.0-10.0); Mean Corpuscular HGB CONC 31.7 g/dL (32.0-36.0); Mean Corpuscular Hemoglobin 30.1 pg (27.0-31.0); Mean Platelet Volume 10.8 fL (7.4-10.4); Platelet Count 150 thou/uL (130-400); RBC Distribution Width 13.4 % (11.5-14.5); Red Blood Cell (RBC) Count 3.98 mill/uL (4.70-6.10); White Blood Cell (WBC) Count 10.6 thou/uL (4.8-10.8)
[2019-10-26 18:03] LABS: Anion Gap 11 mmol/L (10-20); BUN (Urea Nitrogen) 19 mg/dL (8.4-25.7); Calc. Creatinine Clearance 77 mL/min (70-130); Calcium 8.3 mg/dL (7.8-10.44); Carbon Dioxide 31 mmol/L (23-31); Chloride 98 mmol/L (98-107); Estimated GFR-MDRD 74; Glucose 120 mg/dL (83-110); Sodium 137 mmol/L (136-145)
[2019-10-26] MEDS ORDERED: Potassium Chloride 20 MEQ TAB PO SCH (18:45)
[2019-10-26] MEDS: Melatonin 3 MG TAB PO SCH (21:37)
[2019-10-26] MEDS: Aspirin Chewable 81 MG TAB PO SCH (21:37)
[2019-10-26] MEDS: Atorvastatin Calcium 10 MG TAB PO SCH (21:38)
[2019-10-26] MEDS: ALPRAZolam 0.5 MG TAB PO SCH (21:38)
[2019-10-26] MEDS: Lisinopril 20 MG TAB PO SCH (21:40)
[2019-10-27] MEDS: Tamsulosin HCl 0.4 MG CAP PO SCH (08:51)
[2019-10-27] MEDS: Acetaminophen 500 MG TAB PO PRN ×2 (08:51→15:42)
[2019-10-27] MEDS: Primidone 50 MG TAB PO SCH ×2 (08:51→20:39)
[2019-10-27] MEDS: Venlafaxine HCl XR 75 MG CAP PO SCH (08:51)
[2019-10-27] MEDS: hydrALAZINE 25 MG TAB PO SCH ×3 (08:52→20:38)
[2019-10-27] MEDS: Multivitamin W/ Minerals 1 TAB PO SCH (08:52)
[2019-10-27] MEDS: Finasteride 5 MG TAB PO SCH (08:52)
[2019-10-27] MEDS: Carvedilol 25 MG TAB PO SCH ×2 (08:52→20:39)
[2019-10-27] MEDS: Docusate 100 MG CAP PO SCH (08:52)
[2019-10-27] MEDS: Polyethylene Glycol 3350 17 GM Packet PO SCH (08:53)
[2019-10-27] MEDS: Furosemide 40 MG TAB PO SCH (08:53)
[2019-10-27] MEDS: Amlodipine 10 MG TAB PO SCH (08:53)
[2019-10-27] MEDS: Potassium Chloride 20 MEQ TAB PO SCH (08:53)
[2019-10-27] MEDS: Atorvastatin Calcium 10 MG TAB PO SCH (20:37)
[2019-10-27] MEDS: Melatonin 3 MG TAB PO SCH (20:37)
[2019-10-27] MEDS: ALPRAZolam 0.5 MG TAB PO SCH (20:37)
[2019-10-27] MEDS: Acetaminophen ER (8hr) 650 MG TAB PO SCH (20:38)
[2019-10-27] MEDS: Lisinopril 20 MG TAB PO SCH (20:39)
[2019-10-27] MEDS: Aspirin Chewable 81 MG TAB PO SCH (20:39)
[2019-10-28 04:55] LABS: Anion Gap 10 mmol/L (10-20); BUN (Urea Nitrogen) 15 mg/dL (8.4-25.7); Calc. Creatinine Clearance 95 mL/min (70-130); Calcium 8.2 mg/dL (7.8-10.44); Carbon Dioxide 28 mmol/L (23-31); Chloride 104 mmol/L (98-107); Estimated GFR-MDRD Greater than 90; Glucose 89 mg/dL (83-110); Potassium 3.1 mmol/L (3.5-5.1); Sodium 139 mmol/L (136-145)
[2019-10-28] MEDS: Amlodipine 10 MG TAB PO SCH (08:43)
[2019-10-28] MEDS: hydrALAZINE 25 MG TAB PO SCH ×3 (08:47→20:52)
[2019-10-28] MEDS: Carvedilol 25 MG TAB PO SCH ×2 (08:47→20:54)
[2019-10-28] MEDS: Acetaminophen ER (8hr) 650 MG TAB PO SCH ×3 (08:47→20:52)
[2019-10-28] MEDS: Multivitamin W/ Minerals 1 TAB PO SCH (08:47)
[2019-10-28] MEDS: Primidone 50 MG TAB PO SCH ×2 (08:47→20:47)
[2019-10-28] MEDS: Tamsulosin HCl 0.4 MG CAP PO SCH (08:47)
[2019-10-28] MEDS: Furosemide 40 MG TAB PO SCH (08:48)
[2019-10-28] MEDS: Finasteride 5 MG TAB PO SCH (08:48)
[2019-10-28] MEDS: Potassium Chloride 20 MEQ TAB PO SCH ×2 (08:48→17:28)
[2019-10-28] MEDS: Venlafaxine HCl XR 75 MG CAP PO SCH (08:48)
[2019-10-28] MEDS: Polyethylene Glycol 3350 17 GM Packet PO SCH (08:49)
[2019-10-28] MEDS: Docusate 100 MG CAP PO SCH (08:49)
[2019-10-28] MEDS: Lisinopril 20 MG TAB PO SCH (20:46)
[2019-10-28] MEDS: Aspirin Chewable 81 MG TAB PO SCH (20:51)
[2019-10-28] MEDS: Melatonin 3 MG TAB PO SCH (20:52)
[2019-10-28] MEDS: Atorvastatin Calcium 10 MG TAB PO SCH (20:53)
[2019-10-28] MEDS: ALPRAZolam 0.5 MG TAB PO SCH (20:54)
[2019-10-29] MEDS: Venlafaxine HCl XR 75 MG CAP PO SCH (08:06)
[2019-10-29] MEDS: Potassium Chloride 20 MEQ TAB PO SCH ×2 (08:06→17:06)
[2019-10-29] MEDS: Carvedilol 25 MG TAB PO SCH ×2 (08:06→21:11)
[2019-10-29] MEDS: Acetaminophen ER (8hr) 650 MG TAB PO SCH ×3 (08:06→21:10)
[2019-10-29] MEDS: Furosemide 40 MG TAB PO SCH (08:06)
[2019-10-29] MEDS: Primidone 50 MG TAB PO SCH ×2 (08:06→21:10)
[2019-10-29] MEDS: Finasteride 5 MG TAB PO SCH (08:06)
[2019-10-29] MEDS: Tamsulosin HCl 0.4 MG CAP PO SCH (08:06)
[2019-10-29] MEDS: Polyethylene Glycol 3350 17 GM Packet PO SCH (08:07)
[2019-10-29] MEDS: hydrALAZINE 25 MG TAB PO SCH ×3 (08:07→21:11)
[2019-10-29] MEDS: Multivitamin W/ Minerals 1 TAB PO SCH (08:07)
[2019-10-29] MEDS: Docusate 100 MG CAP PO SCH (08:07)
[2019-10-29] MEDS: Amlodipine 10 MG TAB PO SCH (08:07)
[2019-10-29] MEDS: Artificial Tear Sol 15 ML BOT EA EYE PRN (08:24)
[2019-10-29] MEDS: Lisinopril 20 MG TAB PO SCH (21:10)
[2019-10-29] MEDS: ALPRAZolam 0.5 MG TAB PO SCH (21:10)
[2019-10-29] MEDS: Atorvastatin Calcium 10 MG TAB PO SCH (21:11)
[2019-10-29] MEDS: Aspirin Chewable 81 MG TAB PO SCH (21:11)
[2019-10-29] MEDS: Melatonin 3 MG TAB PO SCH (21:11)
[2019-10-30 06:35] LABS: Anion Gap 13 mmol/L (10-20); BUN (Urea Nitrogen) 10 mg/dL (8.4-25.7); Calc. Creatinine Clearance 99 mL/min (70-130); Calcium 8.5 mg/dL (7.8-10.44); Carbon Dioxide 23 mmol/L (23-31); Chloride 106 mmol/L (98-107); Estimated GFR-MDRD Greater than 90; Glucose 89 mg/dL (83-110); Potassium 4.1 mmol/L (3.5-5.1); Sodium 138 mmol/L (136-145)
[2019-10-30] MEDS: Furosemide 40 MG TAB PO SCH (08:14)
[2019-10-30] MEDS: hydrALAZINE 25 MG TAB PO SCH ×3 (08:14→21:10)
[2019-10-30] MEDS: Tamsulosin HCl 0.4 MG CAP PO SCH (08:14)
[2019-10-30] MEDS: Multivitamin W/ Minerals 1 TAB PO SCH (08:14)
[2019-10-30] MEDS: Potassium Chloride 20 MEQ TAB PO SCH ×2 (08:14→17:03)
[2019-10-30] MEDS: Acetaminophen ER (8hr) 650 MG TAB PO SCH ×3 (08:14→21:11)
[2019-10-30] MEDS: Primidone 50 MG TAB PO SCH ×2 (08:15→21:10)
[2019-10-30] MEDS: Finasteride 5 MG TAB PO SCH (08:15)
[2019-10-30] MEDS: Amlodipine 10 MG TAB PO SCH (08:15)
[2019-10-30] MEDS: Venlafaxine HCl XR 75 MG CAP PO SCH (08:15)
[2019-10-30] MEDS: Carvedilol 25 MG TAB PO SCH ×2 (08:15→21:10)
[2019-10-30] MEDS: Docusate 100 MG CAP PO SCH (08:16)
[2019-10-30] MEDS: Polyethylene Glycol 3350 17 GM Packet PO SCH (08:16)
[2019-10-30] MEDS: Lisinopril 20 MG TAB PO SCH (21:09)
[2019-10-30] MEDS: Aspirin Chewable 81 MG TAB PO SCH (21:10)
[2019-10-30] MEDS: Melatonin 3 MG TAB PO SCH (21:11)
[2019-10-30] MEDS: Atorvastatin Calcium 10 MG TAB PO SCH (21:11)
[2019-10-30] MEDS: ALPRAZolam 0.5 MG TAB PO SCH (21:13)
[2019-10-31] MEDS: Artificial Tear Sol 15 ML BOT EA EYE PRN (09:02)
[2019-10-31] MEDS: Potassium Chloride 20 MEQ TAB PO SCH ×2 (09:03→18:03)
[2019-10-31] MEDS: Tamsulosin HCl 0.4 MG CAP PO SCH (09:03)
[2019-10-31] MEDS: Docusate 100 MG CAP PO SCH (09:03)
[2019-10-31] MEDS: Acetaminophen ER (8hr) 650 MG TAB PO SCH ×3 (09:04→21:22)
[2019-10-31] MEDS: Furosemide 40 MG TAB PO SCH (09:04)
[2019-10-31] MEDS: Venlafaxine HCl XR 75 MG CAP PO SCH (09:04)
[2019-10-31] MEDS: Finasteride 5 MG TAB PO SCH (09:04)
[2019-10-31] MEDS: Multivitamin W/ Minerals 1 TAB PO SCH (09:04)
[2019-10-31] MEDS: Carvedilol 25 MG TAB PO SCH ×2 (09:04→21:22)
[2019-10-31] MEDS: Amlodipine 10 MG TAB PO SCH (09:05)
[2019-10-31] MEDS: Primidone 50 MG TAB PO SCH ×2 (09:05→21:21)
[2019-10-31] MEDS: hydrALAZINE 25 MG TAB PO SCH ×3 (09:05→21:21)
[2019-10-31] MEDS: Polyethylene Glycol 3350 17 GM Packet PO SCH (09:07)
[2019-10-31] MEDS: Melatonin 3 MG TAB PO SCH (21:21)
[2019-10-31] MEDS: Aspirin Chewable 81 MG TAB PO SCH (21:21)
[2019-10-31] MEDS: Atorvastatin Calcium 10 MG TAB PO SCH (21:22)
[2019-10-31] MEDS: Lisinopril 20 MG TAB PO SCH (21:22)
[2019-10-31] MEDS: ALPRAZolam 0.5 MG TAB PO SCH (21:36)
[2019-11-01] MEDS: Docusate 100 MG CAP PO SCH (08:16)
[2019-11-01] MEDS: Finasteride 5 MG TAB PO SCH (08:16)
[2019-11-01] MEDS: Polyethylene Glycol 3350 17 GM Packet PO SCH (08:16)
[2019-11-01] MEDS: Venlafaxine HCl XR 75 MG CAP PO SCH (08:16)
[2019-11-01] MEDS: Acetaminophen ER (8hr) 650 MG TAB PO SCH ×3 (08:16→20:38)
[2019-11-01] MEDS: Multivitamin W/ Minerals 1 TAB PO SCH (08:17)
[2019-11-01] MEDS: Furosemide 40 MG TAB PO SCH (08:17)
[2019-11-01] MEDS: Tamsulosin HCl 0.4 MG CAP PO SCH (08:18)
[2019-11-01] MEDS: Potassium Chloride 20 MEQ TAB PO SCH ×2 (08:18→16:01)
[2019-11-01] MEDS: Primidone 50 MG TAB PO SCH ×2 (08:18→20:37)
[2019-11-01] MEDS: Carvedilol 25 MG TAB PO SCH ×2 (08:20→20:36)
[2019-11-01] MEDS: Amlodipine 10 MG TAB PO SCH (08:22)
[2019-11-01] MEDS: hydrALAZINE 25 MG TAB PO SCH ×3 (08:22→20:38)
[2019-11-01] MEDS: Atorvastatin Calcium 10 MG TAB PO SCH (20:36)
[2019-11-01] MEDS: Melatonin 3 MG TAB PO SCH (20:36)
[2019-11-01] MEDS: Lisinopril 20 MG TAB PO SCH (20:37)
[2019-11-01] MEDS: Aspirin Chewable 81 MG TAB PO SCH (20:37)
[2019-11-01] MEDS: ALPRAZolam 0.5 MG TAB PO SCH (20:38)
[2019-11-02] MEDS: Polyethylene Glycol 3350 17 GM Packet PO SCH (08:52)
[2019-11-02] MEDS: hydrALAZINE 25 MG TAB PO SCH ×3 (08:53→21:03)
[2019-11-02] MEDS: Furosemide 40 MG TAB PO SCH (08:53)
[2019-11-02] MEDS: Carvedilol 25 MG TAB PO SCH ×2 (08:54→21:02)
[2019-11-02] MEDS: Docusate 100 MG CAP PO SCH (08:54)
[2019-11-02] MEDS: Acetaminophen ER (8hr) 650 MG TAB PO SCH ×3 (08:54→21:03)
[2019-11-02] MEDS: Potassium Chloride 20 MEQ TAB PO SCH ×2 (08:54→16:01)
[2019-11-02] MEDS: Primidone 50 MG TAB PO SCH ×2 (08:55→21:01)
[2019-11-02] MEDS: Venlafaxine HCl XR 75 MG CAP PO SCH (08:55)
[2019-11-02] MEDS: Tamsulosin HCl 0.4 MG CAP PO SCH (08:55)
[2019-11-02] MEDS: Amlodipine 10 MG TAB PO SCH (08:56)
[2019-11-02] MEDS: Multivitamin W/ Minerals 1 TAB PO SCH (08:56)
[2019-11-02] MEDS: Finasteride 5 MG TAB PO SCH (08:56)
[2019-11-02] MEDS: Lisinopril 20 MG TAB PO SCH (21:00)
[2019-11-02] MEDS: Melatonin 3 MG TAB PO SCH (21:01)
[2019-11-02] MEDS: Atorvastatin Calcium 10 MG TAB PO SCH (21:01)
[2019-11-02] MEDS: ALPRAZolam 0.5 MG TAB PO SCH (21:02)
[2019-11-02] MEDS: Aspirin Chewable 81 MG TAB PO SCH (21:03)
[2019-11-03] MEDS: Amlodipine 10 MG TAB PO SCH (08:14)
[2019-11-03] MEDS: Multivitamin W/ Minerals 1 TAB PO SCH (08:15)
[2019-11-03] MEDS: Venlafaxine HCl XR 75 MG CAP PO SCH (08:15)
[2019-11-03] MEDS: Potassium Chloride 20 MEQ TAB PO SCH ×2 (08:15→17:17)
[2019-11-03] MEDS: Finasteride 5 MG TAB PO SCH (08:16)
[2019-11-03] MEDS: Carvedilol 25 MG TAB PO SCH ×2 (08:16→21:33)
[2019-11-03] MEDS: Acetaminophen ER (8hr) 650 MG TAB PO SCH ×3 (08:16→21:31)
[2019-11-03] MEDS: Furosemide 40 MG TAB PO SCH (08:16)
[2019-11-03] MEDS: Tamsulosin HCl 0.4 MG CAP PO SCH (08:16)
[2019-11-03] MEDS: hydrALAZINE 25 MG TAB PO SCH ×3 (08:16→21:31)
[2019-11-03] MEDS: Primidone 50 MG TAB PO SCH ×2 (08:16→21:32)
[2019-11-03] MEDS: Docusate 100 MG CAP PO SCH (08:17)
[2019-11-03] MEDS: Polyethylene Glycol 3350 17 GM Packet PO SCH (08:18)
[2019-11-03] MEDS: ALPRAZolam 0.5 MG TAB PO SCH (21:32)
[2019-11-03] MEDS: Aspirin Chewable 81 MG TAB PO SCH (21:32)
[2019-11-03] MEDS: Melatonin 3 MG TAB PO SCH (21:33)
[2019-11-03] MEDS: Lisinopril 20 MG TAB PO SCH (21:33)
[2019-11-03] MEDS: Atorvastatin Calcium 10 MG TAB PO SCH (21:33)
[2019-11-04] MEDS: Venlafaxine HCl XR 75 MG CAP PO SCH (08:37)
[2019-11-04] MEDS: Carvedilol 25 MG TAB PO SCH ×2 (08:37→20:47)
[2019-11-04] MEDS: Amlodipine 10 MG TAB PO SCH (08:38)
[2019-11-04] MEDS: Tamsulosin HCl 0.4 MG CAP PO SCH (08:40)
[2019-11-04] MEDS: Furosemide 40 MG TAB PO SCH (08:40)
[2019-11-04] MEDS: Multivitamin W/ Minerals 1 TAB PO SCH (08:40)
[2019-11-04] MEDS: Acetaminophen ER (8hr) 650 MG TAB PO SCH ×3 (08:40→20:49)
[2019-11-04] MEDS: hydrALAZINE 25 MG TAB PO SCH ×2 (08:41→15:10)
[2019-11-04] MEDS: Finasteride 5 MG TAB PO SCH (08:41)
[2019-11-04] MEDS: Potassium Chloride 20 MEQ TAB PO SCH ×2 (08:41→17:07)
[2019-11-04] MEDS: Primidone 50 MG TAB PO SCH ×2 (08:41→20:49)
[2019-11-04] MEDS: Docusate 100 MG CAP PO SCH (08:42)
[2019-11-04] MEDS: Polyethylene Glycol 3350 17 GM Packet PO SCH (08:42)
[2019-11-04 10:36] VITALS: BMI 27.6
[2019-11-04 15:10] LABS: Anion Gap 13 mmol/L (10-20); BUN (Urea Nitrogen) 15 mg/dL (8.4-25.7); Calc. Creatinine Clearance 55 mL/min (70-130); Calcium 9.3 mg/dL (7.8-10.44); Carbon Dioxide 30 mmol/L (23-31); Chloride 103 mmol/L (98-107); Estimated GFR-MDRD 53; Glucose 117 mg/dL (83-110); Potassium 4.3 mmol/L (3.5-5.1); Sodium 142 mmol/L (136-145)
[2019-11-04] MEDS ORDERED: hydrALAZINE 10 MG TAB PO SCH (15:30)
[2019-11-04] MEDS: ALPRAZolam 0.5 MG TAB PO SCH (20:46)
[2019-11-04] MEDS: Melatonin 3 MG TAB PO SCH (20:46)
[2019-11-04] MEDS: Lisinopril 20 MG TAB PO SCH (20:48)
[2019-11-04] MEDS: hydrALAZINE 10 MG TAB PO SCH (20:48)
[2019-11-04] MEDS: Aspirin Chewable 81 MG TAB PO SCH (20:49)
[2019-11-04] MEDS: Atorvastatin Calcium 10 MG TAB PO SCH (20:49)
[2019-11-05] MEDS: Artificial Tear Sol 15 ML BOT EA EYE PRN (08:40)
[2019-11-05] MEDS: Polyethylene Glycol 3350 17 GM Packet PO SCH (08:41)
[2019-11-05] MEDS: Venlafaxine HCl XR 75 MG CAP PO SCH (08:42)
[2019-11-05] MEDS: Primidone 50 MG TAB PO SCH ×2 (08:42→20:34)
[2019-11-05] MEDS: Carvedilol 25 MG TAB PO SCH ×2 (08:42→20:33)
[2019-11-05] MEDS: Acetaminophen ER (8hr) 650 MG TAB PO SCH ×3 (08:42→20:33)
[2019-11-05] MEDS: Tamsulosin HCl 0.4 MG CAP PO SCH (08:42)
[2019-11-05] MEDS: hydrALAZINE 10 MG TAB PO SCH ×3 (08:43→20:33)
[2019-11-05] MEDS: Potassium Chloride 20 MEQ TAB PO SCH ×2 (08:43→17:56)
[2019-11-05] MEDS: Docusate 100 MG CAP PO SCH (08:44)
[2019-11-05] MEDS: Finasteride 5 MG TAB PO SCH (08:44)
[2019-11-05] MEDS: Multivitamin W/ Minerals 1 TAB PO SCH (08:44)
[2019-11-05] MEDS: Furosemide 40 MG TAB PO SCH (08:45)
[2019-11-05] MEDS: Amlodipine 10 MG TAB PO SCH (08:45)
[2019-11-05] MEDS: ALPRAZolam 0.5 MG TAB PO SCH (20:32)
[2019-11-05] MEDS: Atorvastatin Calcium 10 MG TAB PO SCH (20:33)
[2019-11-05] MEDS: Melatonin 3 MG TAB PO SCH (20:33)
[2019-11-05] MEDS: Lisinopril 20 MG TAB PO SCH (20:34)
[2019-11-05] MEDS: Aspirin Chewable 81 MG TAB PO SCH (20:35)
[2019-11-06] MEDS: Docusate 100 MG CAP PO SCH (08:16)
[2019-11-06] MEDS: Acetaminophen ER (8hr) 650 MG TAB PO SCH ×3 (08:16→20:19)
[2019-11-06] MEDS: Carvedilol 25 MG TAB PO SCH ×2 (08:16→20:20)
[2019-11-06] MEDS: Multivitamin W/ Minerals 1 TAB PO SCH (08:16)
[2019-11-06] MEDS: Potassium Chloride 20 MEQ TAB PO SCH ×2 (08:17→17:47)
[2019-11-06] MEDS: Venlafaxine HCl XR 75 MG CAP PO SCH (08:17)
[2019-11-06] MEDS: Furosemide 40 MG TAB PO SCH (08:17)
[2019-11-06] MEDS: Finasteride 5 MG TAB PO SCH (08:18)
[2019-11-06] MEDS: Tamsulosin HCl 0.4 MG CAP PO SCH (08:18)
[2019-11-06] MEDS: Primidone 50 MG TAB PO SCH ×2 (08:18→20:19)
[2019-11-06] MEDS: Polyethylene Glycol 3350 17 GM Packet PO SCH (08:19)
[2019-11-06] MEDS: hydrALAZINE 10 MG TAB PO SCH ×3 (08:34→20:20)
[2019-11-06] MEDS: Amlodipine 10 MG TAB PO SCH (08:34)
[2019-11-06 11:47] LABS: Anion Gap 14 mmol/L (10-20); BUN (Urea Nitrogen) 16 mg/dL (8.4-25.7); Calc. Creatinine Clearance 63 mL/min (70-130); Calcium 9.2 mg/dL (7.8-10.44); Carbon Dioxide 28 mmol/L (23-31); Chloride 104 mmol/L (98-107); Estimated GFR-MDRD 61; Glucose 132 mg/dL (83-110); Potassium 4.2 mmol/L (3.5-5.1); Sodium 142 mmol/L (136-145)
[2019-11-06] MEDS: ALPRAZolam 0.5 MG TAB PO SCH (20:19)
[2019-11-06] MEDS: Atorvastatin Calcium 10 MG TAB PO SCH (20:20)
[2019-11-06] MEDS: Melatonin 3 MG TAB PO SCH (20:20)
[2019-11-06] MEDS: Lisinopril 20 MG TAB PO SCH (20:20)
[2019-11-06] MEDS: Aspirin Chewable 81 MG TAB PO SCH (20:21)
[2019-11-07] MEDS: Tamsulosin HCl 0.4 MG CAP PO SCH (08:43)
[2019-11-07] MEDS: Carvedilol 25 MG TAB PO SCH ×2 (08:44→20:42)
[2019-11-07] MEDS: Potassium Chloride 20 MEQ TAB PO SCH ×2 (08:44→17:44)
[2019-11-07] MEDS: Acetaminophen ER (8hr) 650 MG TAB PO SCH ×3 (08:44→20:42)
[2019-11-07] MEDS: Amlodipine 10 MG TAB PO SCH (08:44)
[2019-11-07] MEDS: Primidone 50 MG TAB PO SCH (08:44)
[2019-11-07] MEDS: Furosemide 40 MG TAB PO SCH (08:44)
[2019-11-07] MEDS: Venlafaxine HCl XR 75 MG CAP PO SCH (08:44)
[2019-11-07] MEDS: Finasteride 5 MG TAB PO SCH (08:44)
[2019-11-07] MEDS: Docusate 100 MG CAP PO SCH (08:44)
[2019-11-07] MEDS: Multivitamin W/ Minerals 1 TAB PO SCH (08:45)
[2019-11-07] MEDS: Polyethylene Glycol 3350 17 GM Packet PO SCH (08:45)
[2019-11-07] MEDS: hydrALAZINE 10 MG TAB PO SCH ×3 (08:45→20:43)
[2019-11-07] MEDS: Atorvastatin Calcium 10 MG TAB PO SCH (20:42)
[2019-11-07] MEDS: Lisinopril 20 MG TAB PO SCH (20:42)
[2019-11-07] MEDS: Aspirin Chewable 81 MG TAB PO SCH (20:44)
[2019-11-07] MEDS: Melatonin 3 MG TAB PO SCH (20:44)
[2019-11-08] MEDS: Potassium Chloride 20 MEQ TAB PO SCH ×2 (08:14→17:48)
[2019-11-08] MEDS: Venlafaxine HCl XR 75 MG CAP PO SCH (08:14)
[2019-11-08] MEDS: hydrALAZINE 10 MG TAB PO SCH ×3 (08:14→21:05)
[2019-11-08] MEDS: Multivitamin W/ Minerals 1 TAB PO SCH (08:14)
[2019-11-08] MEDS: Acetaminophen ER (8hr) 650 MG TAB PO SCH ×3 (08:15→21:05)
[2019-11-08] MEDS: Amlodipine 10 MG TAB PO SCH (08:15)
[2019-11-08] MEDS: Tamsulosin HCl 0.4 MG CAP PO SCH (08:15)
[2019-11-08] MEDS: Carvedilol 25 MG TAB PO SCH ×2 (08:15→21:05)
[2019-11-08] MEDS: Finasteride 5 MG TAB PO SCH (08:15)
[2019-11-08] MEDS: Docusate 100 MG CAP PO SCH (08:16)
[2019-11-08] MEDS: Furosemide 40 MG TAB PO SCH (08:16)
[2019-11-08] MEDS: Polyethylene Glycol 3350 17 GM Packet PO SCH (08:17)
[2019-11-08] MEDS: Atorvastatin Calcium 10 MG TAB PO SCH (21:05)
[2019-11-08] MEDS: Melatonin 3 MG TAB PO SCH (21:05)
[2019-11-08] MEDS: Aspirin Chewable 81 MG TAB PO SCH (21:05)
[2019-11-08] MEDS: Lisinopril 20 MG TAB PO SCH (21:06)
[2019-11-09] MEDS: Venlafaxine HCl XR 75 MG CAP PO SCH (08:50)
[2019-11-09] MEDS: Docusate 100 MG CAP PO SCH (08:50)
[2019-11-09] MEDS: Finasteride 5 MG TAB PO SCH (08:50)
[2019-11-09] MEDS: Furosemide 40 MG TAB PO SCH (08:50)
[2019-11-09] MEDS: Polyethylene Glycol 3350 17 GM Packet PO SCH (08:50)
[2019-11-09] MEDS: Carvedilol 25 MG TAB PO SCH ×2 (08:50→20:45)
[2019-11-09] MEDS: Potassium Chloride 20 MEQ TAB PO SCH ×2 (08:51→17:30)
[2019-11-09] MEDS: Tamsulosin HCl 0.4 MG CAP PO SCH (08:51)
[2019-11-09] MEDS: Multivitamin W/ Minerals 1 TAB PO SCH (08:51)
[2019-11-09] MEDS: Acetaminophen ER (8hr) 650 MG TAB PO SCH ×3 (08:51→22:38)
[2019-11-09] MEDS: Amlodipine 10 MG TAB PO SCH (08:51)
[2019-11-09] MEDS: hydrALAZINE 10 MG TAB PO SCH ×3 (08:52→20:45)
[2019-11-09] MEDS ORDERED: ALPRAZolam 0.5 MG TAB PO PRN (09:48)
[2019-11-09] MEDS: Lisinopril 20 MG TAB PO SCH (20:44)
[2019-11-09] MEDS: Melatonin 3 MG TAB PO SCH (20:45)
[2019-11-09] MEDS: ALPRAZolam 0.5 MG TAB PO SCH (20:46)
[2019-11-09] MEDS: Aspirin Chewable 81 MG TAB PO SCH (20:46)
[2019-11-09] MEDS: Atorvastatin Calcium 10 MG TAB PO SCH (20:46)
[2019-11-09 22:49] LABS: Bilirubin Negative (Negative); Blood, Urine Negative (Negative); Clarity Clear (Clear); Glucose, Urine (Dipstick) Negative (Negative); Leukocyte Negative (Negative); Nitrite Negative (Negative); Protein, Urine (Dipstick) Negative (Neg-Trace); Urobilinogen 0.2 mg/dL (Less than 2)
[2019-11-09 23:04] LABS: Bacteria/HPF Rare-Few HPF (None Seen); RBC/HPF 0-3 HPF (0-3); Squamous Epithelial None Seen HPF (0-3); WBC/HPF None Seen HPF (0-3)
[2019-11-10 04:39] LABS: #Basophils 0.1 thou/uL (0.0-0.2); #Eosinphils 0.3 thou/uL (0.0-0.7); #Lymphocytes 2.8 thou/uL (1.20-3.40); #Neutrophils 4.3 thou/uL (1.40-6.50); %Eosinophils 3.1 % (0.0-10.0); %Lymphocytes 33.2 % (21.0-51.0); %Monocytes 11.6 % (0.0-10.0); %Neutrophils 51.1 % (42.0-75.0); Hemoglobin 12.3 g/dL (14.0-18.0); Mean Corpuscular HGB CONC 31.8 g/dL (32.0-36.0); Mean Corpuscular Hemoglobin 29.9 pg (27.0-31.0); Mean Corpuscular Volume 94.1 fL (78.0-98.0); Mean Platelet Volume 8.3 fL (7.4-10.4); Platelet Count 333 thou/uL (130-400); RBC Distribution Width 13.8 % (11.5-14.5); White Blood Cell (WBC) Count 8.5 thou/uL (4.8-10.8)
[2019-11-10 04:53] LABS: ALT (SGPT) 25 U/L (8-55); AST (SGOT) 21 U/L (5-34); Albumin 3.1 g/dL (3.4-4.8); Alkaline Phosphatase 53 U/L (40-110); Anion Gap 12 mmol/L (10-20); BUN (Urea Nitrogen) 11 mg/dL (8.4-25.7); Bilirubin, Total 0.2 mg/dL (0.2-1.2); Calc. Creatinine Clearance 80 mL/min (70-130); Calcium 9.2 mg/dL (7.8-10.44); Carbon Dioxide 26 mmol/L (23-31); Chloride 106 mmol/L (98-107); Estimated GFR-MDRD 84; Globulin 2.7 g/dL (2.4-3.5); Glucose 97 mg/dL (83-110); Potassium 3.9 mmol/L (3.5-5.1); Protein, Total 5.8 g/dL (5.8-8.1); Sodium 140 mmol/L (136-145)
--- NOTE | 2019-11-10 07:41 | RAD ---
PORTABLE CHEST: Date: 11/09/2019 An AP portable film at 2219 hours is compared with the 10/07/2019 study. The heart is normal in size. The AICD remains in place. There is no vascular congestion or edema. No major lobar infiltrate was seen. Haziness in the left costophrenic angle is probably more likely d ue to portable technique than pathology here, however, a follow-up study, if possible, might be prude nt. IMPRESSION: Probably negative study. See above. POS: HOME
[2019-11-10] MEDS: Polyethylene Glycol 3350 17 GM Packet PO SCH (08:14)
[2019-11-10] MEDS: Venlafaxine HCl XR 75 MG CAP PO SCH (08:15)
[2019-11-10] MEDS: Amlodipine 10 MG TAB PO SCH (08:15)
[2019-11-10] MEDS: Finasteride 5 MG TAB PO SCH (08:15)
[2019-11-10] MEDS: Acetaminophen ER (8hr) 650 MG TAB PO SCH ×3 (08:15→20:30)
[2019-11-10] MEDS: Tamsulosin HCl 0.4 MG CAP PO SCH (08:15)
[2019-11-10] MEDS: Potassium Chloride 20 MEQ TAB PO SCH ×2 (08:17→17:34)
[2019-11-10] MEDS: hydrALAZINE 10 MG TAB PO SCH ×3 (08:17→20:31)
[2019-11-10] MEDS: Furosemide 40 MG TAB PO SCH (08:17)
[2019-11-10] MEDS: Docusate 100 MG CAP PO SCH (08:17)
[2019-11-10] MEDS: Multivitamin W/ Minerals 1 TAB PO SCH (08:18)
[2019-11-10] MEDS: Carvedilol 25 MG TAB PO SCH ×2 (08:18→20:29)
[2019-11-10] MEDS: Aspirin Chewable 81 MG TAB PO SCH (20:30)
[2019-11-10] MEDS: Atorvastatin Calcium 10 MG TAB PO SCH (20:30)
[2019-11-10] MEDS: ALPRAZolam 0.5 MG TAB PO SCH (20:30)
[2019-11-10] MEDS: Primidone 50 MG TAB PO SCH (20:30)
[2019-11-10] MEDS: Melatonin 3 MG TAB PO SCH (20:31)
[2019-11-10] MEDS: Lisinopril 20 MG TAB PO SCH (20:31)
[2019-11-11] MEDS: Tamsulosin HCl 0.4 MG CAP PO SCH (08:26)
[2019-11-11] MEDS: Polyethylene Glycol 3350 17 GM Packet PO SCH (08:26)
[2019-11-11] MEDS: Acetaminophen ER (8hr) 650 MG TAB PO SCH ×3 (08:26→20:15)
[2019-11-11] MEDS: Venlafaxine HCl XR 75 MG CAP PO SCH (08:27)
[2019-11-11] MEDS: Finasteride 5 MG TAB PO SCH (08:27)
[2019-11-11] MEDS: Primidone 50 MG TAB PO SCH ×2 (08:28→20:17)
[2019-11-11] MEDS: Furosemide 40 MG TAB PO SCH (08:28)
[2019-11-11] MEDS: Potassium Chloride 20 MEQ TAB PO SCH ×2 (08:29→18:07)
[2019-11-11] MEDS: Carvedilol 25 MG TAB PO SCH ×2 (08:29→20:17)
[2019-11-11] MEDS: Docusate 100 MG CAP PO SCH (08:29)
[2019-11-11] MEDS: Multivitamin W/ Minerals 1 TAB PO SCH (08:29)
[2019-11-11] MEDS: Artificial Tear Sol 15 ML BOT EA EYE PRN (08:29)
[2019-11-11] MEDS: Amlodipine 10 MG TAB PO SCH (08:45)
[2019-11-11] MEDS: hydrALAZINE 10 MG TAB PO SCH ×3 (08:48→20:17)
[2019-11-11] MEDS: Atorvastatin Calcium 10 MG TAB PO SCH (20:15)
[2019-11-11] MEDS: Aspirin Chewable 81 MG TAB PO SCH (20:15)
[2019-11-11] MEDS: Lisinopril 20 MG TAB PO SCH (20:16)
[2019-11-11] MEDS: Melatonin 3 MG TAB PO SCH (20:17)
[2019-11-11] MEDS: ALPRAZolam 0.5 MG TAB PO SCH (20:18)
[2019-11-12 06:12] VITALS: BP 118/73; TEMP 97.8
[2019-11-12] MEDS: Docusate 100 MG CAP PO SCH (08:26)
[2019-11-12] MEDS: Furosemide 40 MG TAB PO SCH (08:26)
[2019-11-12] MEDS: Tamsulosin HCl 0.4 MG CAP PO SCH (08:27)
[2019-11-12] MEDS: Potassium Chloride 20 MEQ TAB PO SCH (08:27)
[2019-11-12] MEDS: Carvedilol 25 MG TAB PO SCH (08:27)
[2019-11-12] MEDS: Multivitamin W/ Minerals 1 TAB PO SCH (08:28)
[2019-11-12] MEDS: Primidone 50 MG TAB PO SCH (08:28)
[2019-11-12] MEDS: Finasteride 5 MG TAB PO SCH (08:28)
[2019-11-12] MEDS: Venlafaxine HCl XR 75 MG CAP PO SCH (08:28)
[2019-11-12] MEDS: hydrALAZINE 10 MG TAB PO SCH (08:29)
[2019-11-12] MEDS: Amlodipine 10 MG TAB PO SCH (08:29)
[2019-11-12] MEDS: Acetaminophen ER (8hr) 650 MG TAB PO SCH (08:30)
[2019-11-12] MEDS: Artificial Tear Sol 15 ML BOT EA EYE PRN ×2 (08:30→08:41)
[2019-11-12] MEDS: Polyethylene Glycol 3350 17 GM Packet PO SCH (11:25)
== END 2019-11-12 09:50 | DRG 56 ==
LOC: BURMED 16:44 → UNDOADMIN 16:44
PROVIDERS: ADMIT Family Medicine; ATTEND Family Medicine
DX: I69.154 Hemiplegia and hemiparesis following nontraumatic intracerebral hemorrhage affecting left non-dominant side (principal); G93.6 Cerebral edema; J69.0 Pneumonitis due to inhalation of food and vomit; I42.9 Cardiomyopathy, unspecified; Z66 Do not resuscitate; I10 Essential (primary) hypertension; I48.91 Unspecified atrial fibrillation; E78.5 Hyperlipidemia, unspecified; Z95.0 Presence of cardiac pacemaker; Z87.891 Personal history of nicotine dependence; Z79.82 Long term (current) use of aspirin; Z79.899 Other long term (current) drug therapy
CPT/HCPCS: 36415; 71045; 80048; 80053; 81001; 81003; 83735; 85025; J8540

== ENCOUNTER 2020-03-30 03:35 | Outpatient (CLI) | payer MEDICARE, OTHER ==
[2020-03-30 04:14] LABS: ALT (SGPT) 14 U/L (8-55); AST (SGOT) 15 U/L (5-34); Albumin 3.8 g/dL (3.4-4.8); Alkaline Phosphatase 42 U/L (40-110); Anion Gap 16 mmol/L (10-20); BUN (Urea Nitrogen) 16 mg/dL (8.4-25.7); Bilirubin, Total 0.3 mg/dL (0.2-1.2); Calc. Creatinine Clearance 0 mL/min (70-130); Calcium 8.9 mg/dL (7.8-10.44); Carbon Dioxide 27 mmol/L (23-31); Cardiac Risk 2.3 (Less than 4.5); Chloride 104 mmol/L (98-107); Cholesterol 119 mg/dl (< 200 Desired); Estimated GFR-MDRD 82; Glucose 92 mg/dL (83-110); HDL Cholesterol 51 mg/dL (>60 Neg Risk); LDL Cholesterol, Calculated 57 mg/dL; Potassium 3.5 mmol/L (3.5-5.1); Protein, Total 5.8 g/dL (5.8-8.1); Sodium 143 mmol/L (136-145); Triglycerides 57 mg/dL (Less than 150)
== END 2020-03-30 03:36 | disposition home or self-care (01) ==
LOC: BURMANOR 03:35
PROVIDERS: ATTEND Registered Nurse Community Health
DX: I42.9 Cardiomyopathy, unspecified (principal); E78.5 Hyperlipidemia, unspecified
CPT/HCPCS: 80053; 80061

== ENCOUNTER 2020-04-12 10:16 | Emergency (ER) | payer MEDICARE, OTHER ==
[2020-04-12 10:57] LABS: #Eosinphils 0.1 thou/uL (0.0-0.7); #Lymphocytes 2.3 thou/uL (1.20-3.40); #Monocytes 0.6 thou/uL (0.11-0.59); #Neutrophils 4.5 thou/uL (1.40-6.50); %Basophils 0.4 % (0.0-1.0); %Eosinophils 1.9 % (0.0-10.0); %Lymphocytes 30.4 % (21.0-51.0); %Monocytes 7.7 % (0.0-10.0); %Neutrophils 59.7 % (42.0-75.0); Mean Corpuscular HGB CONC 32.2 g/dL (32.0-36.0); Mean Corpuscular Hemoglobin 30.8 pg (27.0-31.0); Mean Corpuscular Volume 95.8 fL (78.0-98.0); Mean Platelet Volume 9.8 fL (7.4-10.4); Platelet Count 227 thou/uL (130-400); RBC Distribution Width 12.9 % (11.5-14.5); Red Blood Cell (RBC) Count 4.21 mill/uL (4.70-6.10); White Blood Cell (WBC) Count 7.6 thou/uL (4.8-10.8)
[2020-04-12 11:09] LABS: Bilirubin Negative (Negative); Blood, Urine Negative (Negative); Clarity Slightly Cloudy (Clear); Glucose, Urine (Dipstick) Negative (Negative); Ketone, Urine Negative (Negative); Leukocyte Negative (Negative); Nitrite Negative (Negative); Protein, Urine (Dipstick) Negative (Neg-Trace); Urobilinogen 0.2 mg/dL (Less than 2)
[2020-04-12 11:16] LABS: ALT (SGPT) 13 U/L (8-55); AST (SGOT) 14 U/L (5-34); Albumin 3.9 g/dL (3.4-4.8); Alkaline Phosphatase 47 U/L (40-110); Anion Gap 14 mmol/L (10-20); BUN (Urea Nitrogen) 15 mg/dL (8.4-25.7); Bilirubin, Total 0.4 mg/dL (0.2-1.2); Calc. Creatinine Clearance 0 mL/min (70-130); Calcium 9.1 mg/dL (7.8-10.44); Carbon Dioxide 29 mmol/L (23-31); Chloride 104 mmol/L (98-107); Estimated GFR-MDRD 69; Globulin 2.1 g/dL (2.4-3.5); Glucose 89 mg/dL (83-110); Potassium 3.4 mmol/L (3.5-5.1); Sodium 144 mmol/L (136-145)
--- NOTE | 2020-04-12 17:36 | RAD ---
PORTABLE CHEST: 04/12/20 An AP portable film at 1056 is compare with the prior study of 11/09/19. There has been no adverse interval change. The heart is minimally enlarged and no different than befo re. An AICD is in place. The lungs are clear with no infiltrate or effusion. There may be a little sc arring near the cardiac apex as before. There is no vascular congestion or edema. IMPRESSION: No acute thoracic finding. POS: HOME
--- NOTE | 2020-04-12 17:39 | CT ---
CT OF THE BRAIN WITHOUT CONTRAST: 04/12/20 Comparison is made with the prior CT dated 10/08/19 which showed a hemorrhagic infarct in the left occ ipital region. There is resulting encephalomalacia in the left occipital region with compensatory dilation of the le ft atrium and occipital portion of the lateral ventricle. The rest of the ventricular system is chris l in size for age and atrophy. There was no acute intracranial bleeding, or mass. No acute stroke was appreciated, though a very small one might be missed around the area of the prior stroke. The skull appears intact and the visible paranasal sinuses are clear. IMPRESSION: Old left occipital stroke, but no acute intracranial findings. POS: HOME
== END 2020-04-12 15:51 | disposition home or self-care (01) ==
LOC: BURERS 10:16
DX: R55 Syncope and collapse (principal); I49.9 Cardiac arrhythmia, unspecified; I48.91 Unspecified atrial fibrillation; E78.5 Hyperlipidemia, unspecified; I10 Essential (primary) hypertension; K21.9 Gastro-esophageal reflux disease without esophagitis; M19.90 Unspecified osteoarthritis, unspecified site; G47.00 Insomnia, unspecified; F41.9 Anxiety disorder, unspecified; F32.9 Major depressive disorder, single episode, unspecified; Z87.891 Personal history of nicotine dependence; Z79.899 Other long term (current) drug therapy; Z79.82 Long term (current) use of aspirin
CPT/HCPCS: 70450; 71045; 80053; 81003; 83605; 83880; 84443; 84484; 85025; 93005

== ENCOUNTER 2020-06-01 08:48 | Outpatient (CLI) | payer MEDICARE, OTHER ==
--- NOTE | 2020-06-01 15:34 | RAD ---
RIGHT HAND 3 VIEWS: DATE: 06/01/2020. FINDINGS: There is a fracture through the neck of the distal 5th metacarpal with slight angulation of the metac arpal head towards the palm. The remainder of the hand shows some mild arthritic changes, but no acu te findings. The carpal relationships appear normal. IMPRESSION: Slightly displaced fracture of the distal 5th metacarpal. POS: HOME
== END 2020-06-01 08:49 | disposition home or self-care (01) ==
LOC: BURRAD 08:48
PROVIDERS: ATTEND Registered Nurse Community Health
DX: S69.91XA Unspecified injury of right wrist, hand and finger(s), initial encounter (principal); S62.336A Displaced fracture of neck of fifth metacarpal bone, right hand, initial encounter for closed fracture

== ENCOUNTER 2020-06-08 19:44 | Outpatient (CLI) | payer MEDICARE, OTHER ==
[2020-06-09 17:27] LABS: SARS-CoV-2 MS2 Positive; SARS-CoV-2 N Gene Positive; SARS-CoV-2 S Gene Positive; SARS-CoV-2 by NAA DETECTED (NotDetected); SARS-CoV-2 orf1ab Positive
== END 2020-06-08 19:45 | disposition home or self-care (01) ==
LOC: BURMANOR 19:44
PROVIDERS: ATTEND Family Medicine
DX: U07.1 COVID-19 (principal)
CPT/HCPCS: 87635; U0003

== ENCOUNTER 2021-02-11 07:46 | Outpatient (CLI) | payer MEDICARE, OTHER ==
[2021-02-11 07:52] LABS: ALT (SGPT) 20 U/L (8-55); AST (SGOT) 18 U/L (5-34); Albumin 3.9 g/dL (3.4-4.8); Alkaline Phosphatase 39 U/L (40-110); Anion Gap 12 mmol/L (10-20); BUN (Urea Nitrogen) 18 mg/dL (8.4-25.7); Bilirubin, Total 0.3 mg/dL (0.2-1.2); Calc. Creatinine Clearance 0 mL/min (70-130); Carbon Dioxide 31 mmol/L (23-31); Cardiac Risk 2.5 (Less than 4.5); Chloride 102 mmol/L (98-107); Cholesterol 130 mg/dl (< 200 Desired); Globulin 2.4 g/dL (2.4-3.5); Glucose 93 mg/dL (83-110); HDL Cholesterol 52 mg/dL (>60 Neg Risk); LDL Cholesterol, Calculated 61 mg/dL; Potassium 4.1 mmol/L (3.5-5.1); Protein, Total 6.3 g/dL (5.8-8.1); Sodium 141 mmol/L (136-145); Triglycerides 84 mg/dL (Less than 150)
== END 2021-02-11 07:47 | disposition home or self-care (01) ==
LOC: BURMANOR 07:46
PROVIDERS: ATTEND Family Medicine
DX: I12.9 Hypertensive chronic kidney disease with stage 1 through stage 4 chronic kidney disease, or unspecified chronic kidney disease (principal); I50.9 Heart failure, unspecified; E78.5 Hyperlipidemia, unspecified
CPT/HCPCS: 80053; 80061

== ENCOUNTER 2021-06-17 11:32 | Emergency (ER) | payer MEDICARE, OTHER ==
[2021-06-17 12:33] LABS: Bilirubin Negative (Negative); Blood, Urine Negative (Negative); Clarity Clear (Clear); Glucose, Urine (Dipstick) Negative (Negative); Ketone, Urine Negative (Negative); Leukocyte Negative (Negative); Nitrite Negative (Negative); Protein, Urine (Dipstick) Negative (Neg-Trace); Specific Gravity, Urine 1.015 (1.005-1.030); Urobilinogen 0.2 mg/dL (Less than 2); pH, Urine 6.5 (5.0-9.0)
[2021-06-17 12:36] LABS: #Basophils 0.1 thou/uL (0.0-0.2); #Eosinphils 0.2 thou/uL (0.0-0.7); #Lymphocytes 2.9 thou/uL (1.20-3.40); #Monocytes 0.6 thou/uL (0.11-0.59); %Basophils 0.7 % (0.0-1.0); %Eosinophils 2.3 % (0.0-10.0); %Lymphocytes 36.8 % (21.0-51.0); %Monocytes 8.1 % (0.0-10.0); %Neutrophils 52.1 % (42.0-75.0); Mean Corpuscular HGB CONC 33.7 g/dL (32.0-36.0); Mean Corpuscular Hemoglobin 32.2 pg (27.0-31.0); Mean Corpuscular Volume 95.6 fL (78.0-98.0); Mean Platelet Volume 9.2 fL (7.4-10.4); Platelet Count 240 thou/uL (130-400); RBC Distribution Width 12.9 % (11.5-14.5); Red Blood Cell (RBC) Count 4.64 mill/uL (4.70-6.10); White Blood Cell (WBC) Count 7.8 thou/uL (4.8-10.8)
[2021-06-17 12:48] LABS: ALT (SGPT) 22 U/L (8-55); AST (SGOT) 18 U/L (5-34); Alkaline Phosphatase 42 U/L (40-110); Anion Gap 14 mmol/L (10-20); BUN (Urea Nitrogen) 21 mg/dL (8.4-25.7); Bilirubin, Total 0.5 mg/dL (0.2-1.2); Calc. Creatinine Clearance 0 mL/min (70-130); Calcium 10.1 mg/dL (7.8-10.44); Carbon Dioxide 29 mmol/L (23-31); Chloride 102 mmol/L (98-107); Globulin 2.7 g/dL (2.4-3.5); Glucose 77 mg/dL (83-110); Potassium 3.9 mmol/L (3.5-5.1); Protein, Total 6.7 g/dL (5.8-8.1); Sodium 141 mmol/L (136-145)
[2021-06-17 13:06] LABS: CKMB 1.1 ng/mL (0-6.6)
[2021-06-17 15:34] LABS: Troponin I 0.022 ng/mL (< 0.028)
== END 2021-06-17 15:48 | disposition home or self-care (01) ==
LOC: BURERS 11:32
DX: S00.03XA Contusion of scalp, initial encounter (principal); R55 Syncope and collapse; E78.5 Hyperlipidemia, unspecified; I10 Essential (primary) hypertension; Z86.73 Personal history of transient ischemic attack (TIA), and cerebral infarction without residual deficits; K21.9 Gastro-esophageal reflux disease without esophagitis; Z87.891 Personal history of nicotine dependence; Z79.899 Other long term (current) drug therapy; W19.XXXA Unspecified fall, initial encounter
CPT/HCPCS: 36415; 70450; 72125; 80053; 81003; 82553; 84484; 85025; 93005; 94760

== ENCOUNTER 2021-06-25 16:25 | Emergency (ER) | payer MEDICARE, OTHER ==
[2021-06-25 16:45] LABS: #Basophils 0.1 thou/uL (0.0-0.2); #Eosinphils 0.3 thou/uL (0.0-0.7); #Monocytes 1.3 thou/uL (0.11-0.59); #Neutrophils 5.2 thou/uL (1.40-6.50); %Basophils 0.9 % (0.0-1.0); %Eosinophils 2.8 % (0.0-10.0); %Lymphocytes 30.7 % (21.0-51.0); %Monocytes 12.9 % (0.0-10.0); %Neutrophils 52.7 % (42.0-75.0); Hemoglobin 14.7 g/dL (14.0-18.0); Mean Corpuscular HGB CONC 32.9 g/dL (32.0-36.0); Mean Corpuscular Hemoglobin 32.1 pg (27.0-31.0); Mean Corpuscular Volume 97.7 fL (78.0-98.0); Mean Platelet Volume 9.6 fL (7.4-10.4); Platelet Count 232 thou/uL (130-400); Red Blood Cell (RBC) Count 4.56 mill/uL (4.70-6.10); White Blood Cell (WBC) Count 9.8 thou/uL (4.8-10.8)
[2021-06-25 17:01] LABS: ALT (SGPT) 18 U/L (8-55); AST (SGOT) 17 U/L (5-34); Albumin 3.8 g/dL (3.4-4.8); Alkaline Phosphatase 39 U/L (40-110); Anion Gap 15 mmol/L (10-20); BUN (Urea Nitrogen) 22 mg/dL (8.4-25.7); Bilirubin, Total 0.3 mg/dL (0.2-1.2); Calc. Creatinine Clearance 0 mL/min (70-130); Calcium 9.8 mg/dL (7.8-10.44); Carbon Dioxide 28 mmol/L (23-31); Chloride 100 mmol/L (98-107); Globulin 2.5 g/dL (2.4-3.5); Glucose 79 mg/dL (83-110); Potassium 3.9 mmol/L (3.5-5.1); Protein, Total 6.3 g/dL (5.8-8.1); Sodium 139 mmol/L (136-145)
[2021-06-25 17:06] LABS: Bilirubin Negative (Negative); Blood, Urine Negative (Negative); Clarity Clear (Clear); Glucose, Urine (Dipstick) Negative (Negative); Ketone, Urine Negative (Negative); Leukocyte Negative (Negative); Nitrite Negative (Negative); Protein, Urine (Dipstick) Negative (Neg-Trace); Specific Gravity, Urine 1.015 (1.005-1.030); Urobilinogen 0.2 mg/dL (Less than 2)
== END 2021-06-25 17:55 | disposition home or self-care (01) ==
LOC: BURERS 16:25
DX: I95.1 Orthostatic hypotension (principal); I48.91 Unspecified atrial fibrillation; E78.5 Hyperlipidemia, unspecified; I10 Essential (primary) hypertension; Z86.73 Personal history of transient ischemic attack (TIA), and cerebral infarction without residual deficits; K21.9 Gastro-esophageal reflux disease without esophagitis; Z87.891 Personal history of nicotine dependence
CPT/HCPCS: 71045; 80053; 81003; 83880; 84484; 85025; 87081; 87430; 87804; 93005; 94760

== ENCOUNTER 2021-08-22 03:31 | Emergency (ER) | payer MEDICARE, OTHER ==
[2021-08-22 04:29] LABS: #Basophils 0.1 thou/uL (0.0-0.2); #Eosinphils 0.2 thou/uL (0.0-0.7); #Lymphocytes 2.9 thou/uL (1.20-3.40); #Monocytes 1.2 thou/uL (0.11-0.59); #Neutrophils 6.3 thou/uL (1.40-6.50); %Basophils 0.6 % (0.0-1.0); %Eosinophils 2.1 % (0.0-10.0); %Lymphocytes 27.3 % (21.0-51.0); Hemoglobin 13.2 g/dL (14.0-18.0); Mean Corpuscular HGB CONC 34.3 g/dL (32.0-36.0); Mean Corpuscular Hemoglobin 32.8 pg (27.0-31.0); Mean Corpuscular Volume 95.6 fL (78.0-98.0); Mean Platelet Volume 8.3 fL (7.4-10.4); Platelet Count 241 thou/uL (130-400); RBC Distribution Width 12.6 % (11.5-14.5); Red Blood Cell (RBC) Count 4.02 mill/uL (4.70-6.10); White Blood Cell (WBC) Count 10.7 thou/uL (4.8-10.8)
[2021-08-22 04:43] LABS: Bilirubin Negative (Negative); Blood, Urine Negative (Negative); Clarity Clear (Clear); Glucose, Urine (Dipstick) Negative (Negative); Ketone, Urine Negative (Negative); Leukocyte Negative (Negative); Nitrite Negative (Negative); Protein, Urine (Dipstick) Negative (Neg-Trace); Urobilinogen 0.2 mg/dL (Less than 2)
[2021-08-22 04:49] LABS: ALT (SGPT) 30 U/L (8-55); AST (SGOT) 17 U/L (5-34); Albumin 3.4 g/dL (3.4-4.8); Alkaline Phosphatase 36 U/L (40-110); Anion Gap 12 mmol/L (10-20); BUN (Urea Nitrogen) 28 mg/dL (8.4-25.7); Bilirubin, Total 0.4 mg/dL (0.2-1.2); Calc. Creatinine Clearance 0 mL/min (70-130); Carbon Dioxide 27 mmol/L (23-31); Chloride 101 mmol/L (98-107); Globulin 1.7 g/dL (2.4-3.5); Glucose 88 mg/dL (83-110); Magnesium 1.9 mg/dL (1.6-2.6); Potassium 4.1 mmol/L (3.5-5.1); Protein, Total 5.1 g/dL (5.8-8.1); Sodium 136 mmol/L (136-145)
[2021-08-22 04:50] LABS: Calcium 8.6 mg/dL (7.8-10.44)
[2021-08-22 04:56] LABS: Acetaminophen Less than 6.0 mcg/mL (10.0-30.0); Alcohol Less than 10 mg/dL (Less than 10); Salicylate Less than 8.0 mg/dL (15.0-30.0)
== END 2021-08-22 05:02 | disposition home or self-care (01) ==
LOC: BURERS 03:31
DX: S62.325A Displaced fracture of shaft of fourth metacarpal bone, left hand, initial encounter for closed fracture (principal); S63.613A Unspecified sprain of left middle finger, initial encounter; I95.1 Orthostatic hypotension; E86.0 Dehydration; I44.30 Unspecified atrioventricular block; I49.8 Other specified cardiac arrhythmias; I48.91 Unspecified atrial fibrillation; I10 Essential (primary) hypertension; K21.9 Gastro-esophageal reflux disease without esophagitis; M19.90 Unspecified osteoarthritis, unspecified site; G47.00 Insomnia, unspecified; G62.9 Polyneuropathy, unspecified; I69.951 Hemiplegia and hemiparesis following unspecified cerebrovascular disease affecting right dominant side; W19.XXXA Unspecified fall, initial encounter; Z87.891 Personal history of nicotine dependence; Z79.82 Long term (current) use of aspirin; Z79.899 Other long term (current) drug therapy
CPT/HCPCS: 36415; 80053; 80307; 81003; 83735; 84484; 85025

== ENCOUNTER 2022-01-05 13:15 | Emergency (ER) | payer MEDICARE, OTHER ==
[2022-01-05 14:29] LABS: #Basophils 0.1 thou/uL (0.0-0.2); #Eosinphils 0.2 thou/uL (0.0-0.7); #Lymphocytes 2.9 thou/uL (1.20-3.40); #Monocytes 0.7 thou/uL (0.11-0.59); #Neutrophils 4.6 thou/uL (1.40-6.50); %Basophils 0.7 % (0.0-1.0); %Eosinophils 2.9 % (0.0-10.0); %Lymphocytes 33.4 % (21.0-51.0); %Monocytes 8.6 % (0.0-10.0); %Neutrophils 54.4 % (42.0-75.0); Hemoglobin 15.5 g/dL (14.0-18.0); Mean Corpuscular HGB CONC 33.3 g/dL (32.0-36.0); Mean Corpuscular Hemoglobin 32.3 pg (27.0-31.0); Mean Corpuscular Volume 96.8 fL (78.0-98.0); Mean Platelet Volume 9.2 fL (7.4-10.4); Platelet Count 246 thou/uL (130-400); RBC Distribution Width 12.7 % (11.5-14.5); White Blood Cell (WBC) Count 8.5 thou/uL (4.8-10.8)
[2022-01-05 14:47] LABS: ALT (SGPT) 23 U/L (8-55); AST (SGOT) 19 U/L (5-34); Alkaline Phosphatase 37 U/L (40-110); Anion Gap 16 mmol/L (10-20); BUN (Urea Nitrogen) 28 mg/dL (8.4-25.7); Bilirubin, Total 0.5 mg/dL (0.2-1.2); Calc. Creatinine Clearance 0 mL/min (70-130); Calcium 9.1 mg/dL (7.8-10.44); Carbon Dioxide 28 mmol/L (23-31); Chloride 105 mmol/L (98-107); Globulin 2.1 g/dL (2.4-3.5); Glucose 101 mg/dL (83-110); Potassium 3.5 mmol/L (3.5-5.1); Protein, Total 6.1 g/dL (5.8-8.1); Sodium 145 mmol/L (136-145)
[2022-01-05 15:41] LABS: Bilirubin Negative (Negative); Blood, Urine Negative (Negative); Clarity Clear (Clear); Glucose, Urine (Dipstick) Negative (Negative); Ketone, Urine Trace mg/dL (Negative); Leukocyte Negative (Negative); Nitrite Negative (Negative); Protein, Urine (Dipstick) 30 mg/dL (Neg-Trace); Specific Gravity, Urine 1.025 (1.005-1.030); Urobilinogen 0.2 mg/dL (Less than 2); pH, Urine 5.5 (5.0-9.0)
[2022-01-05 15:47] LABS: Bacteria/HPF 2+ HPF (None Seen); Mucous/LPF 3+ LPF (<2+); RBC/HPF 0-3 HPF (0-3); Squamous Epithelial 0-3 HPF (0-3); WBC/HPF 0-3 HPF (0-3)
== END 2022-01-05 16:31 | disposition home or self-care (01) ==
LOC: BURERS 13:15
DX: I95.89 Other hypotension (principal); E86.9 Volume depletion, unspecified; E78.5 Hyperlipidemia, unspecified; I10 Essential (primary) hypertension; G47.00 Insomnia, unspecified; N40.0 Benign prostatic hyperplasia without lower urinary tract symptoms; K21.9 Gastro-esophageal reflux disease without esophagitis; Z86.73 Personal history of transient ischemic attack (TIA), and cerebral infarction without residual deficits; Z87.891 Personal history of nicotine dependence; Z79.899 Other long term (current) drug therapy; Z79.82 Long term (current) use of aspirin
CPT/HCPCS: 36415; 80053; 81003; 81015; 85025; 87086; 96360